=== PATIENT | male | born 1970 | race American Indian/Alaskan Native ===

== ENCOUNTER 2018-04-24 06:01 | Inpatient (IN) | payer SELFPAY ==
[2018-04-24 07:17] LABS: Basophils # (Auto) 0.1 K/mm3 (0.0-0.1); Basophils % (Auto) 1.2 % (0.0-1.8); Eosinophils # (Auto) 0.1 K/mm3 (0.0-0.4); Eosinophils % (Auto) 1.1 % (0.0-4.3); Hematocrit 48.6 % (35.5-45.6); Hemoglobin 15.2 gm/dl (11.8-15.2); Lymphocytes # (Auto) 1.1 K/mm3 (1.2-5.4); Lymphocytes % (Auto) 14.2 % (13.4-35.0); Mean Corpuscular HGB Conc 31 % (32-34); Mean Corpuscular Hemoglobin 27 pg (28-32); Mean Corpuscular Volume 87 fl (84-94); Monocytes # (Auto) 0.6 K/mm3 (0.0-0.8); Monocytes % (Auto) 8.2 % (0.0-7.3); Platelet Count 380 K/mm3 (140-440); Red Cell Distribution Width 18.5 % (13.2-15.2)
--- NOTE | 2018-04-24 07:34 | XRay Report ---
FINAL REPORT EXAM: XR CHEST ROUTINE 2V HISTORY: Shortness of breath TECHNIQUE: PA and lateral chest radiographs PRIORS: None. FINDINGS: No mediastinal shift. Cardiomegaly. Mild blunting right costophrenic angle. Ill-defined right basilar opacity. No pneumothorax, effusion, or focal pulmonary opacity. No acute skeletal finding. IMPRESSION: Ill-defined right basilar opacity with small right pleural effusion may be sequela of infection or heart failure.
[2018-04-24 07:40] LABS: Calcium 9.3 mg/dL (8.4-10.2)
[2018-04-24] MEDS ORDERED: LASIX IV ONE (07:58)
[2018-04-24] MEDS ORDERED: NITROSTAT SL ONE (07:58)
--- NOTE | 2018-04-24 07:58 | Emergency Department Report ---
ED Shortness of Breath HPI - General Chief Complaint: Dyspnea/Respdistress Stated Complaint: SOB AND HIGH B/P Time Seen by Provider: 04/24/18 07:52 Source: patient Mode of arrival: Ambulatory Limitations: No Limitations - History of Present Illness Initial Comments: Patient is a 47-year-old male with history of congestive heart failure and hypertension. Patient presented to the ER complaining of shortness of breath and generalized body swelling mainly abdomen and lower extremity. Patient stated that he is out of his medication for a week so far. She denied any chest pain, fever or cough. MD Complaint: shortness of breath - Related Data Allergies Allergy/AdvReac Type Severity Reaction Status Date / Time No Known Allergies Allergy Unverified 04/24/18 06:54 ED Review of Systems ROS: Stated complaint: SOB AND HIGH B/P Other details as noted in HPI Comment: All other systems reviewed and negative Constitutional: denies: chills, fever Respiratory: orthopnea, shortness of breath, SOB with exertion, SOB at rest. denies: cough, wheezing Gastrointestinal: denies: abdominal pain, nausea, vomiting, hematochezia Genitourinary: denies: urgency, dysuria Musculoskeletal: denies: back pain Skin: denies: rash, lesions Neurological: denies: headache, weakness, numbness, paresthesias, confusion ED Past Medical Hx - Past Medical History Previous Medical History?: Yes Hx Congestive Heart Failure: Yes - Surgical History Past Surgical History?: Yes - Social History Smoking Status: Never Smoker Substance Use Type: None ED Physical Exam - General Limitations: No Limitations General appearance: alert, in no apparent distress - Head Head exam: Present: atraumatic, normocephalic, normal inspection - Eye Eye exam: Present: normal appearance, PERRL - ENT ENT exam: Present: normal exam, normal orophraynx, mucous membranes moist - Neck Neck exam: Present: normal inspection, full ROM. Absent: tenderness, meningismus, lymphadenopathy, thyromegaly - Respiratory Respiratory exam: Present: rales, decreased breath sounds. Absent: respiratory distress, wheezes, rhonchi, accessory muscle use, prolonged expiratory - Cardiovascular Cardiovascular Exam: Present: tachycardia - GI/Abdominal GI/Abdominal exam: Present: soft, normal bowel sounds. Absent: distended, tenderness, guarding, rebound, rigid, organomegaly, mass, bruit, pulsatile mass , hernia - Extremities Exam Extremities exam: Present: pedal edema. Absent: tenderness, calf tenderness - Back Exam Back exam: Present: normal inspection, full ROM. Absent: tenderness, CVA tenderness (R), CVA tenderness (L), muscle spasm, paraspinal tenderness, vertebral tenderness - Neurological Exam Neurological exam: Present: alert, oriented X3, CN II-XII intact, normal gait, reflexes normal - Skin Skin exam: Present: warm, intact, normal color ED Course Vital Signs 04/24/18 04/24/18 06:37 07:36 Temperature 97.7 F Pulse Rate 105 H Respiratory 18 18 Rate Blood Pressure 192/151 O2 Sat by Pulse 96 99 Oximetry ED Medical Decision Making - Lab Data Result diagrams: 04/24/18 07:01 04/24/18 07:01 - EKG Data -: EKG Interpreted by Mn - Radiology Data Radiology results: report reviewed Referring Physician: SANTO KIRBY Patient Name: BAYRON GROVER Date of : 1970 Sex: Male Report Date: 2018-04-24 Report Status: Finalized Findings [facility] [address] [place] [address] XRay Report Signed Patient: BAYRON GROVER MR#: [id number] : 1970 Acct:[id number] Age/Sex: 47 / M ADM Date: 04/24/18 Loc: ED Attending Dr: Ordering Physician: SANTO KIRBY MD Date of Service: 04/24/18 Procedure(s): XR chest routine 2V Accession Number(s): [id number] cc: SANTO KIRBY MD Fluoro Time In Minutes: FINAL REPORT EXAM: XR CHEST ROUTINE 2V HISTORY: Shortness of breath TECHNIQUE: PA and lateral chest radiographs PRIORS: None. FINDINGS: No mediastinal shift. Cardiomegaly. Mild blunting right costophrenic angle. Ill-defined right basilar opacity. No pneumothorax, effusion, or focal pulmonary opacity. No acute skeletal finding. IMPRESSION: Ill-defined right basilar opacity with small right pleural effusion may be sequela of infection or heart failure. Transcribed By: MB Dictated By: EZEKIEL THOMPSON MD Electronically Authenticated By: EZEKIEL THOMPSON MD Signed Date/Time: 04/24/18733 DD/ 3 TD/TT: 04/24/18733 - Medical Decision Making I discussed the patient is Dr. Mclaughlin, he agreed to admit the patient to medical service. He advised to do bridge order to admit the patient. Critical Care Time: Yes Critical care time in (mins) excluding proc time.: 30 Critical care attestation.: If time is entered above; I have spent that time in minutes in the direct care of this critically ill patient, excluding procedure time. ED Disposition Clinical Impression: CHF exacerbation, Hypertensive emergency, Acute renal failure Disposition: OP ADMIT IP TO THIS HOSP Is pt being admited?: Yes Condition: Stable Instructions: Hypertension (ED) Referrals: PRIMARY CARE, [Primary Care Provider] - 3-5 Days
[2018-04-24] MEDS ORDERED: SODIUM CHLORIDE FLUSH SYRINGE 10 ML IV PRN (09:31)
[2018-04-24] MEDS ORDERED: TYLENOL PO PRN (09:31)
[2018-04-24] MEDS ORDERED: MORPHINE IV PRN (09:31)
[2018-04-24] MEDS ORDERED: AMBIEN PO PRN (09:31)
[2018-04-24] MEDS ORDERED: ZOFRAN IV PRN (09:31)
[2018-04-24 09:38] LABS: Chol/HDL Ratio 4.79 %
[2018-04-24] MEDS ORDERED: PEPCID PO SCH (10:00)
[2018-04-24] MEDS: APRESOLINE PO SCH ×2 (11:03→21:53)
[2018-04-24] MEDS: COZAAR PO SCH (11:03)
[2018-04-24] MEDS: K-DUR PO SCH ×2 (11:04→21:54)
[2018-04-24] MEDS: PEPCID PO SCH (11:04)
[2018-04-24] MEDS: SODIUM CHLORIDE FLUSH SYRINGE 10 ML IV SCH ×2 (11:05→21:55)
[2018-04-24] MEDS: COREG PO SCH ×2 (11:10→21:53)
[2018-04-24] MEDS: LASIX IV SCH (18:24)
[2018-04-25] MEDS: LASIX IV SCH ×2 (05:14→18:13)
[2018-04-25] MEDS: APRESOLINE PO SCH ×3 (05:14→21:23)
[2018-04-25] MEDS ORDERED: CATAPRES PO ONE (05:57)
[2018-04-25 06:22] LABS: Basophils # (Auto) 0.1 K/mm3 (0.0-0.1); Basophils % (Auto) 1.2 % (0.0-1.8); Eosinophils # (Auto) 0.2 K/mm3 (0.0-0.4); Eosinophils % (Auto) 3.4 % (0.0-4.3); Hemoglobin 13.8 gm/dl (11.8-15.2); Lymphocytes % (Auto) 15.8 % (13.4-35.0); Mean Corpuscular HGB Conc 32 % (32-34); Mean Corpuscular Hemoglobin 27 pg (28-32); Mean Corpuscular Volume 85 fl (84-94); Monocytes # (Auto) 0.6 K/mm3 (0.0-0.8); Monocytes % (Auto) 9.9 % (0.0-7.3); Platelet Count 302 K/mm3 (140-440); Red Blood Count 5.04 M/mm3 (3.65-5.03); Red Cell Distribution Width 18.2 % (13.2-15.2)
[2018-04-25 06:58] LABS: Albumin 2.4 g/dL (3.9-5); Calcium 8.5 mg/dL (8.4-10.2)
--- NOTE | 2018-04-25 07:38 | Consultation ---
History of Present Illness - Reason for Consult Consult date: 04/25/18 acute renal failure - History of Present Illness Mr. Kramer is a 47yo with hx of CHF and HTN who presents to the ED with SOB and swelling. He was diagnosed w/ CHF and HTN in 2016 while hospitalized at [facility]. Prior to that time, he had not been seen by a healthcare provider He states that he has not taken any medications for appx 2 months. Mr. Kramer reports onset of SOB and leg swelling began appx 1 month ago and has progressively worsened. He denies a prior hx of CKD. He denies epistaxis, hemoptysis, hematuria, family hx of kidney disease. He reports occasional NSAID use. Past History Past Medical History: heart failure, hypertension Past Surgical History: No surgical history Social history: denies: smoking, alcohol abuse, IV drug use Family history: other (no family hx of kidney disease) Medications and Allergies Allergies Allergy/AdvReac Type Severity Reaction Status Date / Time No Known Allergies Allergy Unverified 04/24/18 06:54 Active Meds: Active Medications Acetaminophen (Tylenol) 650 mg PO Q4H PRN PRN Reason: Pain MILD(1-3)/Fever >100.5/[place] Carvedilol (Coreg) 12.5 mg PO BID [facility] Last Admin: 04/24/18 21:53 Dose: 12.5 mg Famotidine (Pepcid) 20 mg PO QDAY [facility] Last Admin: 04/24/18 11:04 Dose: 20 mg Furosemide (Lasix) 40 mg IV 0600,1800 [facility] Last Admin: 04/25/18 05:14 Dose: 40 mg Hydralazine HCl (Apresoline) 50 mg PO Q8HR [facility] Last Admin: 04/25/18 05:14 Dose: 50 mg Losartan Potassium (Cozaar) 100 mg PO QDAY [facility] Last Admin: 04/24/18 11:03 Dose: 100 mg Morphine Sulfate (Morphine) 2 mg IV Q4H PRN PRN Reason: Pain, Moderate (4-6) Ondansetron HCl (Zofran) 4 mg IV Q8H PRN PRN Reason: Nausea And Vomiting Oxycodone/Acetaminophen (Percocet 5/325) 1 tab PO Q6H PRN PRN Reason: Pain, Moderate (4-6) Potassium Chloride (K-Dur) 20 meq PO Q12HR [facility] Last Admin: 04/24/18 21:54 Dose: 20 meq Sodium Chloride (Sodium Chloride Flush Syringe 10 Ml) 10 ml IV BID [facility] Last Admin: 04/24/18 21:55 Dose: 10 ml Sodium Chloride (Sodium Chloride Flush Syringe 10 Ml) 10 ml IV PRN PRN PRN Reason: LINE FLUSH Zolpidem Tartrate (Ambien) 5 mg PO QHS PRN PRN Reason: Insomnia Review of Systems Constitutional: no fever, no chills, no poor appetite Cardiovascular: edema, shortness of breath, no chest pain, no orthopnea Respiratory: shortness of breath, dyspnea on exertion Exam - Vital Signs Vital signs: Vital Signs Temp Pulse Resp BP Pulse Ox 97.7 F 101 H 12 192/151 92 04/24/18 06:06 04/24/18 06:06 04/24/18 06:06 04/24/18 06:06 04/24/18 06:06 - General Appearance General appearance: well-developed, well-nourished Heart: regular, S1S2 Gastrointestinal: Present: normal. Absent: tenderness, distended Integumentary: no rash, warm and dry Neurologic: alert and oriented x3 Psychiatric: cooperative Results - Lab Results 04/25/18 05:17 04/25/18 05:17 Most recent lab results Calcium 8.5 mg/dL (8.4-10.2) 04/25/18 05:17 Assessment and Plan Impression: * Acute kidney injury vs chronic kidney disease secondary to cardiorenal syndrome * Acute on chronic systolic heart failure - EF 15-20% * Anasarca * Hypertension Plan: * Baseline renal function is unknown. However, patient likely has underlying chronic kidney disease. There is no indication for renal replacement at this time * Continue IV diuresis * Optimization of cardiac function; may require inotrope support to aid in diuresis if SCr increases w/ diruesis * Strict I/O w/ 1500ml/fluid restriction ordered * Check renal ultrasound * Obtain serologic work up * Obtain 24h urine CrCl and protein * Avoid nephrotoxins - patient instructed to avoid NSAID use in future * Dose medications for renal function
--- NOTE | 2018-04-25 08:47 | History and Physical Report ---
History of Present Illness Date of examination: 04/24/18 Date of admission: 04/24/18 08:25 Chief complaint: CC Complaints of SOB asnd swelling of legs 1 week History of present illness: History of Present Illness Patient is a 47-year-old male with history of congestive heart failure and hypertension presented to the ER complaining of shortness of breath and generalized body swelling mainly abdomen and lower extremity. Patient stated that he is out of his medication for 2 months so far. Denied any chest pain, fever or cough.No recent travel. Past Medical History Previous Medical History?: Yes Hx Congestive Heart Failure: Yes Surgical History Past Surgical History?: Yes Family History Htn Social History Smoking Status: Never Smoker Substance Use Type: None Review of Systems ROS: Stated complaint: SOB AND HIGH B/P Other details as noted in HPI Comment: All other systems reviewed and negative Constitutional: denies: chills, fever Respiratory: orthopnea, shortness of breath, SOB with exertion, SOB at rest. denies: cough, wheezing Gastrointestinal: denies: abdominal pain, nausea, vomiting, hematochezia Genitourinary: denies: urgency, dysuria Musculoskeletal: denies: back pain Skin: denies: rash, lesions Neurological: denies: headache, weakness, numbness, paresthesias, confusion Medications and Allergies Allergies Allergy/AdvReac Type Severity Reaction Status Date / Time No Known Allergies Allergy Unverified 04/24/18 06:54 Active Meds: Active Medications Acetaminophen (Tylenol) 650 mg PO Q4H PRN PRN Reason: Pain MILD(1-3)/Fever >100.5/[place] Carvedilol (Coreg) 12.5 mg PO BID [facility] Last Admin: 04/24/18 21:53 Dose: 12.5 mg Famotidine (Pepcid) 20 mg PO QDAY [facility] Last Admin: 04/24/18 11:04 Dose: 20 mg Furosemide (Lasix) 40 mg IV 0600,1800 [facility] Last Admin: 04/25/18 05:14 Dose: 40 mg Hydralazine HCl (Apresoline) 50 mg PO Q8HR [facility] Last Admin: 04/25/18 05:14 Dose: 50 mg Losartan Potassium (Cozaar) 100 mg PO QDAY [facility] Last Admin: 04/24/18 11:03 Dose: 100 mg Morphine Sulfate (Morphine) 2 mg IV Q4H PRN PRN Reason: Pain, Moderate (4-6) Ondansetron HCl (Zofran) 4 mg IV Q8H PRN PRN Reason: Nausea And Vomiting Oxycodone/Acetaminophen (Percocet 5/325) 1 tab PO Q6H PRN PRN Reason: Pain, Moderate (4-6) Potassium Chloride (K-Dur) 20 meq PO Q12HR [facility] Last Admin: 04/24/18 21:54 Dose: 20 meq Sodium Chloride (Sodium Chloride Flush Syringe 10 Ml) 10 ml IV BID [facility] Last Admin: 04/24/18 21:55 Dose: 10 ml Sodium Chloride (Sodium Chloride Flush Syringe 10 Ml) 10 ml IV PRN PRN PRN Reason: LINE FLUSH Zolpidem Tartrate (Ambien) 5 mg PO QHS PRN PRN Reason: Insomnia Exam - Constitutional Vitals: Temp Pulse Resp BP Pulse Ox 97.9 F 57 L 20 136/95 95 04/25/18 07:48 04/25/18 07:48 04/25/18 07:48 04/25/18 07:48 04/25/18 07:48 General appearance: Present: mild distress, well-nourished - EENT Eyes: Present: PERRL ENT: hearing intact, clear oral mucosa - Neck Neck: Present: supple, normal ROM - Respiratory Respiratory effort: normal Respiratory: bilateral: CTA - Cardiovascular Heart rate: 78 Rhythm: regular Heart Sounds: Present: S1 & S2. Absent: rub, click - Extremities Extremities: no ischemia, pulses symmetrical, No edema Extremity abnormal: edema (4 plus) Peripheral Pulses: within normal limits - Abdominal General gastrointestinal: Present: soft, non-tender, non-distended, normal bowel sounds Male genitourinary: Present: normal - Rectal Rectal Exam: deferred - Integumentary Integumentary: Present: clear, warm, dry - Musculoskeletal Musculoskeletal: gait normal, strength equal bilaterally - Psychiatric Psychiatric: appropriate mood/affect, intact judgment & insight - Neurologic Neurologic: CNII-XII intact, moves all extremities - Allied Health Allied health notes reviewed: nursing, case management Results - Labs CBC & Chem 7: 04/25/18 05:17 04/25/18 05:17 Labs: Laboratory Last Values WBC 6.4 K/mm3 (4.5-11.0) 04/25/18 05:17 RBC 5.04 M/mm3 (3.65-5.03) H 04/25/18 05:17 Hgb 13.8 gm/dl (11.8-15.2) 04/25/18 05:17 Hct 43.0 % (35.5-45.6) 04/25/18 05:17 MCV 85 fl (84-94) 04/25/18 05:17 MCH 27 pg (28-32) L 04/25/18 05:17 MCHC 32 % (32-34) 04/25/18 05:17 RDW 18.2 % (13.2-15.2) H 04/25/18 05:17 Plt Count 302 K/mm3 (140-440) 04/25/18 05:17 Lymph % (Auto) 15.8 % (13.4-35.0) 04/25/18 05:17 [place] % (Auto) 9.9 % (0.0-7.3) H 04/25/18 05:17 Eos % (Auto) 3.4 % (0.0-4.3) 04/25/18 05:17 Baso % (Auto) 1.2 % (0.0-1.8) 04/25/18 05:17 Lymph # 1.0 K/mm3 (1.2-5.4) L 04/25/18 05:17 [place] # 0.6 K/mm3 (0.0-0.8) 04/25/18 05:17 Eos # 0.2 K/mm3 (0.0-0.4) 04/25/18 05:17 Baso # 0.1 K/mm3 (0.0-0.1) 04/25/18 05:17 Seg Neutrophils % 69.7 % (40.0-70.0) 04/25/18 05:17 Seg Neutrophils # 4.5 K/mm3 (1.8-7.7) 04/25/18 05:17 Sodium 140 mmol/L (137-145) 04/25/18 05:17 Potassium 4.6 mmol/L (3.6-5.0) 04/25/18 05:17 Chloride 101.6 mmol/L (98-107) 04/25/18 05:17 Carbon Dioxide 24 mmol/L (22-30) 04/25/18 05:17 Anion Gap 19 mmol/L 04/25/18 05:17 BUN 65 mg/dL (9-20) H 04/25/18 05:17 Creatinine 3.4 mg/dL (0.8-1.5) H 04/25/18 05:17 Estimated GFR 24 ml/min 04/25/18 05:17 BUN/Creatinine Ratio 19 % 04/25/18 05:17 Glucose 78 mg/dL (75-100) 04/25/18 05:17 Hemoglobin A1c 6.3 % (4-6) H 04/24/18 09:49 Calcium 8.5 mg/dL (8.4-10.2) 04/25/18 05:17 Total Bilirubin 1.20 mg/dL (0.1-1.2) 04/25/18 05:17 AST 18 units/L (5-40) 04/25/18 05:17 ALT 15 units/L (7-56) 04/25/18 05:17 Alkaline Phosphatase 63 units/L (35-129) 04/25/18 05:17 Troponin T 0.070 ng/mL (0.00-0.029) H 04/24/18 07:01 NT-Pro-B Natriuret Pep 94183 pg/mL (0-450) H 04/24/18 07:01 Total Protein 5.8 g/dL (6.3-8.2) L 04/25/18 05:17 Albumin 2.4 g/dL (3.9-5) L 04/25/18 05:17 Albumin/Globulin Ratio 0.7 % 04/25/18 05:17 Triglycerides 110 mg/dL (2-149) 04/24/18 07:01 Cholesterol 115 mg/dL (50-199) 04/24/18 07:01 LDL Cholesterol Direct 78 mg/dL (50-130) 04/24/18 07:01 HDL Cholesterol 24 mg/dL (40-59) L 04/24/18 07:01 Cholesterol/HDL Ratio 4.79 % 04/24/18 07:01 Short CBC 04/25/18 Range/Units 05:17 WBC 6.4 (4.5-11.0) K/mm3 Hgb 13.8 (11.8-15.2) gm/dl Hct 43.0 (35.5-45.6) % Plt Count 302 (140-440) K/mm3 BMP 04/25/18 05:17 Sodium 140 Potassium 4.6 Chloride 101.6 Carbon Dioxide 24 BUN 65 H Creatinine 3.4 H Glucose 78 Calcium 8.5 Liver Function 04/25/18 Range/Units 05:17 Total Bilirubin 1.20 (0.1-1.2) mg/dL AST 18 (5-40) units/L ALT 15 (7-56) units/L Alkaline Phosphatase 63 (35-129) units/L Albumin 2.4 L (3.9-5) g/dL - Imaging and Cardiology EKG: report reviewed ( [facility]) Chest x-ray: report reviewed Imaging and Cardiology: CXR FINDINGS: No mediastinal shift. Cardiomegaly. Mild blunting right costophrenic angle. Ill-defined right basilar opacity. No pneumothorax, effusion, or focal pulmonary opacity. No acute skeletal finding. IMPRESSION: Ill-defined right basilar opacity with small right pleural effusion may be sequela of infection or heart failure. Assessment and Plan Advance Directives: Yes (Full code) VTE prophylaxis?: Chemical Plan of care discussed with patient/family: Yes - Patient Problems (1) Hypertensive emergency Current Visit: Yes Status: Acute Plan to address problem: Patient counselled Added Losartan Hydralazine and Coreg which he will continue after discharge Hydralazine IV Prn q3h (2) CHF exacerbation Current Visit: Yes Status: Acute Qualifiers: Heart failure type: combined systolic and diastolic Qualified Code(s): I50.43 - Acute on chronic combined systolic (congestive) and diastolic ( congestive) heart failure Plan to address problem: Ordered ECHO for EF and IV Lasix q12h (3) Acute renal failure Current Visit: Yes Status: Acute Qualifiers: Acute renal failure type: with acute tubular necrosis Qualified Code(s): N17.0 - Acute kidney failure with tubular necrosis Plan to address problem: Acute on chronic Nephrolgy consulted (4) CKD (chronic kidney disease) stage 4, GFR 15-29 ml/min Current Visit: Yes Status: Chronic Plan to address problem: Workup in progress (5) DVT prophylaxis Current Visit: Yes Status: Acute Plan to address problem: On Heparin Gi prophylaxis initiated
--- NOTE | 2018-04-25 09:21 | Progress Note ---
Assessment and Plan - Patient Problems (1) Hypertensive emergency Current Visit: Yes Status: Acute Plan to address problem: Patient counselled Added Losartan Hydralazine and Coreg which he will continue after discharge Hydralazine IV Prn q3h (2) CHF exacerbation Current Visit: Yes Status: Acute Qualifiers: Heart failure type: combined systolic and diastolic Qualified Code(s): I50.43 - Acute on chronic combined systolic (congestive) and diastolic ( congestive) heart failure Plan to address problem: Ordered ECHO for EF and IV Lasix q12h EF 15 to 20 percent Cardiology consult requested (3) Acute renal failure Current Visit: Yes Status: Acute Qualifiers: Acute renal failure type: with acute tubular necrosis Qualified Code(s): N17.0 - Acute kidney failure with tubular necrosis Plan to address problem: Acute on chronic Nephrolgy consulted (4) CKD (chronic kidney disease) stage 4, GFR 15-29 ml/min Current Visit: Yes Status: Chronic Plan to address problem: Workup in progress (5) DVT prophylaxis Current Visit: Yes Status: Acute Plan to address problem: On Heparin Gi prophylaxis initiated Subjective Date of service: 04/25/18 Principal diagnosis: Hypertensive emergency,CHF exacerbation Interval history: Symptomatically lot better Objective - Constitutional Vitals: Vital Signs - 12hr 04/24/18 04/25/18 04/25/18 22:00 00:17 05:17 Temperature 97.6 F 97.5 F L Pulse Rate 68 73 Respiratory 18 20 18 Rate Blood Pressure 149/110 170/124 O2 Sat by Pulse 96 97 Oximetry 04/25/18 07:48 Temperature 97.9 F Pulse Rate 57 L Respiratory 20 Rate Blood Pressure 136/95 O2 Sat by Pulse 95 Oximetry General appearance: Present: no acute distress, well-nourished - EENT Eyes: PERRL, EOM intact ENT: hearing intact, clear oral mucosa Ears: bilateral: normal - Neck Neck: supple, normal ROM - Respiratory Respiratory effort: normal Respiratory: bilateral: CTA - Breasts Breasts: normal - Cardiovascular Heart rate: 78 Rhythm: regular Heart Sounds: Present: S1 & S2. Absent: gallop, rub Extremities: no ischemia, pulses intact, No edema, normal color, Full ROM Extremity abnormal: edema (2 plus) - Gastrointestinal General gastrointestinal: Present: soft, non-tender, non-distended, normal bowel sounds Rectal Exam: deferred - Genitourinary Male genitourinary: normal - Integumentary Integumentary: clear, warm, dry - Musculoskeletal Musculoskeletal: 1, strength equal bilaterally - Neurologic Neurologic: moves all extremities - Psychiatric Psychiatric: memory intact, appropriate mood/affect, intact judgment & insight - Labs CBC & Chem 7: 04/25/18 05:17 04/25/18 05:17 Labs: Abnormal lab results 04/24/18 04/24/18 04/25/18 Range/Units 07:01 09:49 05:17 RBC 5.04 H (3.65-5.03) M/mm3 MCH 27 L (28-32) pg RDW 18.2 H (13.2-15.2) % [place] % (Auto) 9.9 H (0.0-7.3) % Lymph # 1.0 L (1.2-5.4) K/mm3 BUN (9-20) mg/dL Creatinine (0.8-1.5) mg/dL Hemoglobin A1c 6.3 H (4-6) % NT-Pro-B Natriuret Pep 19747 H (0-450) pg/mL Total Protein (6.3-8.2) g/dL Albumin (3.9-5) g/dL HDL Cholesterol 24 L (40-59) mg/dL 04/25/18 Range/Units 05:17 RBC (3.65-5.03) M/mm3 MCH (28-32) pg RDW (13.2-15.2) % [place] % (Auto) (0.0-7.3) % Lymph # (1.2-5.4) K/mm3 BUN 65 H (9-20) mg/dL Creatinine 3.4 H (0.8-1.5) mg/dL Hemoglobin A1c (4-6) % NT-Pro-B Natriuret Pep (0-450) pg/mL Total Protein 5.8 L (6.3-8.2) g/dL Albumin 2.4 L (3.9-5) g/dL HDL Cholesterol (40-59) mg/dL
[2018-04-25] MEDS: COZAAR PO SCH (09:25)
[2018-04-25] MEDS: COREG PO SCH ×2 (09:25→21:24)
[2018-04-25] MEDS: K-DUR PO SCH ×2 (09:25→21:24)
[2018-04-25] MEDS: PEPCID PO SCH (09:26)
[2018-04-25] MEDS: SODIUM CHLORIDE FLUSH SYRINGE 10 ML IV SCH ×2 (09:26→21:24)
--- NOTE | 2018-04-25 11:41 | Consultation ---
History of Present Illness Consult date: 04/25/18 Requesting physician: JAKE DOBSON Consult reason: congestive heart failure, hypertension History of present illness: The pt is a 47 YO male with a past medical history significant for HTN and HF. He is previously unknown to our practice. He presented with complaints of progressively worsening BLE and abdominal edema for 1 week and SOB for 1 day prior to arrival. He denies any chest pain, palpitations, n/v, diaphoresis, dizziness or syncope. He reports that he was diagnosed with "congestive heart failure" during a hospitalization for heart failure at [facility] in 2014. Following that hospitalization, he followed up with a [facility] production wood craftsman a couple of times and thought he did not need any more cardiology follow up. He does not regularly see a PCP either. He denies any prior ischemic evaluation, including stress test or heart cath. He has intermittently been getting his prescription medications filled through [facility]. Echo done yesterday showed EF 15-20%, mod LVH, LV mildly dilated, RV severely dilated, RV systolic function mildly reduced, pulm HTN with RVSP 60mmHg, severe TR. Past History Past Medical History: heart failure, hypertension Medications and Allergies Allergies Allergy/AdvReac Type Severity Reaction Status Date / Time No Known Allergies Allergy Unverified 04/24/18 06:54 Active Meds: Active Medications Acetaminophen (Tylenol) 650 mg PO Q4H PRN PRN Reason: Pain MILD(1-3)/Fever >100.5/[place] Carvedilol (Coreg) 12.5 mg PO BID [facility] Last Admin: 04/25/18 09:25 Dose: 12.5 mg Famotidine (Pepcid) 20 mg PO QDAY [facility] Last Admin: 04/25/18 09:26 Dose: 20 mg Furosemide (Lasix) 40 mg IV 0600,1800 [facility] Last Admin: 04/25/18 05:14 Dose: 40 mg Hydralazine HCl (Apresoline) 50 mg PO Q8HR [facility] Last Admin: 04/25/18 05:14 Dose: 50 mg Losartan Potassium (Cozaar) 100 mg PO QDAY [facility] Last Admin: 04/25/18 09:25 Dose: 100 mg Morphine Sulfate (Morphine) 2 mg IV Q4H PRN PRN Reason: Pain, Moderate (4-6) Ondansetron HCl (Zofran) 4 mg IV Q8H PRN PRN Reason: Nausea And Vomiting Oxycodone/Acetaminophen (Percocet 5/325) 1 tab PO Q6H PRN PRN Reason: Pain, Moderate (4-6) Potassium Chloride (K-Dur) 20 meq PO Q12HR [facility] Last Admin: 04/25/18 09:25 Dose: 20 meq Sodium Chloride (Sodium Chloride Flush Syringe 10 Ml) 10 ml IV BID [facility] Last Admin: 04/25/18 09:26 Dose: 10 ml Sodium Chloride (Sodium Chloride Flush Syringe 10 Ml) 10 ml IV PRN PRN PRN Reason: LINE FLUSH Zolpidem Tartrate (Ambien) 5 mg PO QHS PRN PRN Reason: Insomnia Review of Systems Constitutional: no fever, no chills, no sweats Ears, nose, mouth and throat: no ear pain, no nose pain, no sinus pressure, no sinus pain Cardiovascular: edema, shortness of breath, dyspnea on exertion, high blood pressure, leg edema, decreased exercise tolerance, no chest pain, no orthopnea, no palpitations, no rapid/irregular heart beat, no syncope, no lightheadedness, no paroxysmal nocturnal dyspnea Respiratory: shortness of breath, dyspnea on exertion, no cough, no congestion, no wheezing, no pain on inspiration Gastrointestinal: other (abdominal swelling), no abdominal pain, no nausea, no vomiting, no diarrhea, no constipation, no change in bowel habits Genitourinary Male: no dysuria, no hematuria, no flank pain, no discharge, no urinary frequency, no urinary hesitancy Musculoskeletal: no neck stiffness, no neck pain Integumentary: no rash, no pruritis, no redness, no sores, no wounds Neurological: no head injury, no paralysis, no weakness, no parathesias, no numbness, no tingling, no seizures, no syncope Psychiatric: no anxiety Endocrine: no cold intolerance, no heat intolerance Hematologic/Lymphatic: no easy bruising, no easy bleeding Allergic/Immunologic: no urticaria, no wheezing Physical Examination Vital Signs Temp Pulse Resp BP Pulse Ox 97.7 F 101 H 12 192/151 92 04/24/18 06:06 04/24/18 06:06 04/24/18 06:06 04/24/18 06:06 04/24/18 06:06 General appearance: no acute distress HEENT: Positive: PERRL, Normocephaly, Mucus Membranes Moist Neck: Positive: neck supple, trachea midline Cardiac: Positive: Reg Rate and Rhythm, S1/S2 Lungs: Positive: Decreased Breath Sounds Neuro: Positive: Grossly Intact Abdomen: Positive: Other (edematous ). Negative: Tender Skin: Positive: Clear. Negative: Rash, Wound Musculoskeletal: No Pain Extremities: Present: +3 Edema (BLE ) Results 04/25/18 05:17 04/25/18 05:17 Cardiac Enzymes 04/25/18 Range/Units 05:17 AST 18 (5-40) units/L CBC 04/25/18 Range/Units 05:17 WBC 6.4 (4.5-11.0) K/mm3 RBC 5.04 H (3.65-5.03) M/mm3 Hgb 13.8 (11.8-15.2) gm/dl Hct 43.0 (35.5-45.6) % Plt Count 302 (140-440) K/mm3 Lymph # 1.0 L (1.2-5.4) K/mm3 [place] # 0.6 (0.0-0.8) K/mm3 Eos # 0.2 (0.0-0.4) K/mm3 Baso # 0.1 (0.0-0.1) K/mm3 Comprehensive Metabolic Panel 04/25/18 Range/Units 05:17 Sodium 140 (137-145) mmol/L Potassium 4.6 (3.6-5.0) mmol/L Chloride 101.6 (98-107) mmol/L Carbon Dioxide 24 (22-30) mmol/L BUN 65 H (9-20) mg/dL Creatinine 3.4 H (0.8-1.5) mg/dL Glucose 78 (75-100) mg/dL Calcium 8.5 (8.4-10.2) mg/dL AST 18 (5-40) units/L ALT 15 (7-56) units/L Alkaline Phosphatase 63 (35-129) units/L Total Protein 5.8 L (6.3-8.2) g/dL Albumin 2.4 L (3.9-5) g/dL - Imaging and Cardiology Echo: report reviewed (04/24/2018: EF 15-20%, mod LVH, LV mildly dilated, RV severely dilated, RV systolic function mildly reduced, pulm HTN with RVSP 60mmHg , severe TR. ) EKG: report reviewed, image reviewed EKG interpretations - Telemetry EKG Rhythm: Sinus Rhythm - EKG Sinus rhythms and dysrhythmias: sinus rhythm Chamber hypertrophy or enlargement: left ventricular hypertro Repolarization changes or abnormalities: repolarization abn secondary to ventricular hypertrophy Assessment and Plan Assessment: Acute systolic heart failure Dilated CMP - EF 15-20% RV systolic dysfunction Uncontrolled HTN Acute renal failure Pulmonary HTN with RVSP 60mmHg Severe TR Obesity Medical noncompliance Plan: Cont coreg and IV lasix BID. Monitor renal indices and await nephrology consultation. D/c losartan in setting of acute renal failure. Ischemic evaluation (likely coronary angiography) recommended for further eval of CMP and valvular disease. Can consider LHC and/or RHC once renal function is optimized and pt is medically stabilized - likely next week. Consider LifeVest placement prior to hospital discharge. Attempt to obtain [facility] records. Assessment and plan reviewed with pt at bedside. The patient has been seen in conjunction with Dr. Benitez who agrees with the assessment and plan of care.
--- NOTE | 2018-04-25 15:34 | Ultrasound Report ---
FINAL REPORT EXAM: US RENAL BILAT HISTORY: VICKI TECHNIQUE: Ultrasound examination of the kidneys PRIORS: None. FINDINGS: Visualized right kidney: 11.4 x 4.3 x 5.2 cm. Visualized left kidney: 10.7 x 4.3 x 4.0 cm. Renal cortical thickness is 13 mm on the right and 12 mm on the left. Focal lesion: None visible Calculus: None visible Hydronephrosis: None Perinephric fluid: None Urinary bladder: No evidence of focal abnormality in visible portion. Trace free fluid noted adjacent to the inferior liver margin. IMPRESSION: No sonographic evidence of renal pathology Trace free fluid/ascites noted adjacent to the inferior liver margin
[2018-04-26] MEDS: LASIX IV SCH ×2 (06:12→17:50)
[2018-04-26] MEDS: APRESOLINE PO SCH (06:12)
[2018-04-26 07:09] LABS: Calcium 8.5 mg/dL (8.4-10.2)
[2018-04-26] MEDS ORDERED: APRESOLINE PO SCH (09:41)
--- NOTE | 2018-04-26 09:47 | Progress Note ---
Assessment and Plan Assessment and plan: Patient is a 47-year-old male with history of congestive heart failure and hypertension presented to the ER complaining of shortness of breath and generalized body swelling mainly abdomen and lower extremity. Patient stated that he is out of his medication for 2 months so far. Denied any chest pain, fever or cough.No recent travel. Acute on chronic systolic CHF -Ejection fraction 20% -Patient is on IV Lasix -Cardiology consulted and will get records from [place] Uncontrolled hypertension - Patient is on hydralazine increased from 50-100 - On carvedilol - We've discontinued losartan because of renal failure Acute on chronic renal failure - Nephrology consult appreciated Medication noncompliance - Patient counseled about adherence DVT prophylaxis - On heparin Disposition - Continue inpatient care History Interval history: Patient was seen and evaluated this morning, SOB id getting better. Mild bilateral leg swelling. Hospitalist Physical - Physical exam Narrative exam: Not in cardiopulmonary distress. The patient is morbidly obese. Vital signs as documented. Head exam is unremarkable. No scleral icterus . Neck is without jugular venous distension, thyromegaly, or carotid bruits. Lungs are clear to auscultation. Cardiac exam reveals regular rate and Rhythm. First and second heart sounds normal. No murmurs, rubs or gallops. Abdominal exam reveals normal bowel sounds, no masses, no organomegaly and no aortic enlargement. Extremities bilateral lower extremity edema. MANAGER BILLING: Alert and oriented 3. No focal weakness. - Constitutional Vitals: Temp Pulse Resp BP Pulse Ox 97.9 F 65 20 164/113 94 04/26/18 06:48 04/26/18 06:48 04/26/18 01:03 04/26/18 06:48 04/26/18 06:48 General appearance: Present: no acute distress Results - Labs CBC & Chem 7: 04/25/18 05:17 04/26/18 06:15 Labs: Laboratory Last Values WBC 6.4 K/mm3 (4.5-11.0) 04/25/18 05:17 RBC 5.04 M/mm3 (3.65-5.03) H 04/25/18 05:17 Hgb 13.8 gm/dl (11.8-15.2) 04/25/18 05:17 Hct 43.0 % (35.5-45.6) 04/25/18 05:17 MCV 85 fl (84-94) 04/25/18 05:17 MCH 27 pg (28-32) L 04/25/18 05:17 MCHC 32 % (32-34) 04/25/18 05:17 RDW 18.2 % (13.2-15.2) H 04/25/18 05:17 Plt Count 302 K/mm3 (140-440) 04/25/18 05:17 Lymph % (Auto) 15.8 % (13.4-35.0) 04/25/18 05:17 [place] % (Auto) 9.9 % (0.0-7.3) H 04/25/18 05:17 Eos % (Auto) 3.4 % (0.0-4.3) 04/25/18 05:17 Baso % (Auto) 1.2 % (0.0-1.8) 04/25/18 05:17 Lymph # 1.0 K/mm3 (1.2-5.4) L 04/25/18 05:17 [place] # 0.6 K/mm3 (0.0-0.8) 04/25/18 05:17 Eos # 0.2 K/mm3 (0.0-0.4) 04/25/18 05:17 Baso # 0.1 K/mm3 (0.0-0.1) 04/25/18 05:17 Seg Neutrophils % 69.7 % (40.0-70.0) 04/25/18 05:17 Seg Neutrophils # 4.5 K/mm3 (1.8-7.7) 04/25/18 05:17 Sodium 142 mmol/L (137-145) 04/26/18 06:15 Potassium 4.8 mmol/L (3.6-5.0) 04/26/18 06:15 Chloride 101.0 mmol/L (98-107) 04/26/18 06:15 Carbon Dioxide 28 mmol/L (22-30) 04/26/18 06:15 Anion Gap 18 mmol/L 04/26/18 06:15 BUN 59 mg/dL (9-20) H 04/26/18 06:15 Creatinine 3.3 mg/dL (0.8-1.5) H 04/26/18 06:15 Estimated GFR 25 ml/min 04/26/18 06:15 BUN/Creatinine Ratio 18 % 04/26/18 06:15 Glucose 99 mg/dL (75-100) 04/26/18 06:15 Hemoglobin A1c 6.3 % (4-6) H 04/24/18 09:49 Calcium 8.5 mg/dL (8.4-10.2) 04/26/18 06:15 Total Bilirubin 1.20 mg/dL (0.1-1.2) 04/25/18 05:17 AST 18 units/L (5-40) 04/25/18 05:17 ALT 15 units/L (7-56) 04/25/18 05:17 Alkaline Phosphatase 63 units/L (35-129) 04/25/18 05:17 Troponin T 0.070 ng/mL (0.00-0.029) H 04/24/18 07:01 NT-Pro-B Natriuret Pep 22762 pg/mL (0-450) H 04/24/18 07:01 Total Protein 5.8 g/dL (6.3-8.2) L 04/25/18 05:17 Albumin 2.4 g/dL (3.9-5) L 04/25/18 05:17 Albumin/Globulin Ratio 0.7 % 04/25/18 05:17 Triglycerides 110 mg/dL (2-149) 04/24/18 07:01 Cholesterol 115 mg/dL (50-199) 04/24/18 07:01 LDL Cholesterol Direct 78 mg/dL (50-130) 04/24/18 07:01 HDL Cholesterol 24 mg/dL (40-59) L 04/24/18 07:01 Cholesterol/HDL Ratio 4.79 % 04/24/18 07:01
[2018-04-26] MEDS ORDERED: K-DUR PO SCH (10:00)
[2018-04-26] MEDS: PEPCID PO SCH (10:37)
[2018-04-26] MEDS: COREG PO SCH ×2 (10:37→22:08)
--- NOTE | 2018-04-26 10:54 | Progress Note ---
Assessment and Plan Impression: * Acute kidney injury vs chronic kidney disease 3/4 secondary to cardiorenal syndrome * Acute on chronic systolic heart failure - EF 15-20% * Anasarca * Hypertension Plan: * Baseline renal function is unknown. However, patient likely has underlying chronic kidney disease. There is no indication for renal replacement at this time * Continue IV diuresis * cr is stable today * Optimization of cardiac function; may require inotrope support to aid in diuresis if SCr increases w/ diruesis * Strict I/O w/ 1500ml/fluid restriction ordered * noted renal ultrasound * Obtain serologic work up * 24h urine CrCl and protein pending * Avoid nephrotoxins - patient instructed to avoid NSAID use in future * Dose medications for renal function Subjective Date of service: 04/26/18 Principal diagnosis: Hypertensive emergency,CHF exacerbation Interval history: resting in bed today Objective - Exam Narrative Exam: General appearance: well-developed, well-nourished Heart: regular, S1S2 Gastrointestinal: Present: normal. Absent: tenderness, distended Integumentary: no rash, warm and dry Neurologic: alert and oriented x3 Psychiatric: cooperative - Vital Signs Vital signs: Vital Signs - 12hr 04/26/18 04/26/18 04/26/18 01:03 02:16 06:48 Temperature 98.3 F 97.9 F Pulse Rate 60 60 65 Respiratory 20 Rate Blood Pressure 164/113 Blood Pressure 144/103 [Left] O2 Sat by Pulse 94 94 Oximetry - Lab 04/25/18 05:17 04/26/18 06:15 Most recent lab results Calcium 8.5 mg/dL (8.4-10.2) 04/26/18 06:15
[2018-04-26] MEDS ORDERED: BIDIL 20/37.5MG PO NR (11:53)
--- NOTE | 2018-04-26 12:05 | Progress Note ---
Assessment and Plan Acute systolic heart failure Dilated CMP - EF 15-20% RV systolic dysfunction Uncontrolled HTN Acute renal failure Pulmonary HTN with RVSP 60mmHg Severe TR Obesity Medical noncompliance Plan: Change hydralazine to Bidil which is good for CHF in AA. Spoke with Pharmacist. Computer prompting as duplicate order in spite of DC hydralazine. . Subjective Date of service: 04/26/18 Principal diagnosis: Hypertensive emergency,CHF exacerbation Interval history: Shortness of breath is better.Continues to have edema.No chest pain. Objective Vital Signs Temp Pulse Resp BP BP Pulse Ox 04/26/18 06:48 97.9 F 65 164/113 94 04/26/18 02:16 60 04/26/18 01:03 98.3 F 60 20 144/103 94 04/25/18 22:00 22 04/25/18 21:12 98.1 F 60 149/109 99 04/25/18 16:23 97.9 F 62 18 144/101 97 04/25/18 14:54 57 L 136/95 - Physical Examination General: No Apparent Distress HEENT: Positive: PERRL, Normocephaly, Mucus Membranes Moist Neck: Positive: neck supple, trachea midline. Negative: JVD/HJR Cardiac: Positive: Reg Rate and Rhythm, S3 Lungs: Positive: clear to auscultation Neuro: Positive: Grossly Intact Abdomen: Positive: Tender, Other (edematous ) Skin: Positive: Clear. Negative: Rash, Wound Musculoskeletal: No Pain Extremities: Present: +3 Edema (BLE ) - Labs and Meds Comprehensive Metabolic Panel 04/26/18 Range/Units 06:15 Sodium 142 (137-145) mmol/L Potassium 4.8 (3.6-5.0) mmol/L Chloride 101.0 (98-107) mmol/L Carbon Dioxide 28 (22-30) mmol/L BUN 59 H (9-20) mg/dL Creatinine 3.3 H (0.8-1.5) mg/dL Glucose 99 (75-100) mg/dL Calcium 8.5 (8.4-10.2) mg/dL - Imaging and Cardiology EKG: report reviewed, image reviewed Echo: report reviewed (04/24/2018: EF 15-20%, mod LVH, LV mildly dilated, RV severely dilated, RV systolic function mildly reduced, pulm HTN with RVSP 60mmHg , severe TR. ) - EKG Sinus rhythms and dysrhythmias: sinus rhythm Chamber hypertrophy or enlargement: left ventricular hypertro Repolarization changes or abnormalities: repolarization abn secondary to ventricular hypertrophy
[2018-04-26] MEDS: BIDIL 20/37.5MG PO SCH ×2 (16:36→22:08)
[2018-04-26] MEDS: SODIUM CHLORIDE FLUSH SYRINGE 10 ML IV SCH ×2 (17:50→22:09)
[2018-04-26] MEDS: HEPARIN SUB-Q SCH ×2 (17:50→22:08)
[2018-04-26 19:55] LABS: Creatinine,Urine 35.6 mg/dL (0.1-20.0)
[2018-04-26 20:19] LABS: Creatinine 24 Hour,Urine 1.6 (0.8-2.8); Creatinine,Urine 35.6 mg/dL (0.1-20.0)
[2018-04-26 20:20] LABS: Protein/Creatinine Ratio,Urine 0.67
[2018-04-27] MEDS: LASIX IV SCH ×2 (05:27→18:47)
[2018-04-27] MEDS: BIDIL 20/37.5MG PO SCH ×3 (05:27→21:25)
[2018-04-27 09:03] LABS: Calcium 8.5 mg/dL (8.4-10.2)
--- NOTE | 2018-04-27 09:13 | Progress Note ---
Assessment and Plan Assessment and plan: Patient is a 47-year-old male with history of congestive heart failure and hypertension presented to the ER complaining of shortness of breath and generalized body swelling mainly abdomen and lower extremity. Patient stated that he is out of his medication for 2 months so far. Denied any chest pain, fever or cough.No recent travel. Acute on chronic systolic CHF -Ejection fraction 15-20% -Patient is on IV Lasix, net out put of 2.1 L -Patient is on carvedilol and BiDil -Cardiology consulted and will get records from [place] Uncontrolled hypertension - Continue carvedilol and BiDil, controlled - We've discontinued losartan because of renal failure Acute on chronic renal failure - Nephrology consult appreciated - Slight improvement in creatinine Medication noncompliance - Patient counseled about adherence DVT prophylaxis - On heparin Disposition - Continue inpatient care History Interval history: Patient was seen and evaluated this morning, SOB id getting better. Mild bilateral leg swelling. Hospitalist Physical - Physical exam Narrative exam: Not in cardiopulmonary distress. The patient is morbidly obese. Vital signs as documented. Head exam is unremarkable. No scleral icterus . Neck is without jugular venous distension, thyromegaly, or carotid bruits. Lungs are clear to auscultation. Cardiac exam reveals regular rate and Rhythm. First and second heart sounds normal. No murmurs, rubs or gallops. Abdominal exam reveals normal bowel sounds, no masses, no organomegaly and no aortic enlargement. Extremities bilateral lower extremity edema. 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 No focal weakness. - Constitutional Vitals: Temp Pulse Resp BP Pulse Ox 99.6 F 79 18 146/95 94 04/27/18 05:14 04/27/18 07:51 04/27/18 05:14 04/27/18 05:14 04/27/18 05:14 General appearance: Present: no acute distress Results - Labs CBC & Chem 7: 04/25/18 05:17 04/27/18 06:55 Labs: Laboratory Last Values WBC 6.4 K/mm3 (4.5-11.0) 04/25/18 05:17 RBC 5.04 M/mm3 (3.65-5.03) H 04/25/18 05:17 Hgb 13.8 gm/dl (11.8-15.2) 04/25/18 05:17 Hct 43.0 % (35.5-45.6) 04/25/18 05:17 MCV 85 fl (84-94) 04/25/18 05:17 MCH 27 pg (28-32) L 04/25/18 05:17 MCHC 32 % (32-34) 04/25/18 05:17 RDW 18.2 % (13.2-15.2) H 04/25/18 05:17 Plt Count 302 K/mm3 (140-440) 04/25/18 05:17 Lymph % (Auto) 15.8 % (13.4-35.0) 04/25/18 05:17 [place] % (Auto) 9.9 % (0.0-7.3) H 04/25/18 05:17 Eos % (Auto) 3.4 % (0.0-4.3) 04/25/18 05:17 Baso % (Auto) 1.2 % (0.0-1.8) 04/25/18 05:17 Lymph # 1.0 K/mm3 (1.2-5.4) L 04/25/18 05:17 [place] # 0.6 K/mm3 (0.0-0.8) 04/25/18 05:17 Eos # 0.2 K/mm3 (0.0-0.4) 04/25/18 05:17 Baso # 0.1 K/mm3 (0.0-0.1) 04/25/18 05:17 Seg Neutrophils % 69.7 % (40.0-70.0) 04/25/18 05:17 Seg Neutrophils # 4.5 K/mm3 (1.8-7.7) 04/25/18 05:17 Sodium 144 mmol/L (137-145) 04/27/18 06:55 Potassium 4.5 mmol/L (3.6-5.0) 04/27/18 06:55 Chloride 101.0 mmol/L (98-107) 04/27/18 06:55 Carbon Dioxide 23 mmol/L (22-30) 04/27/18 06:55 Anion Gap 25 mmol/L 04/27/18 06:55 BUN 52 mg/dL (9-20) H 04/27/18 06:55 Creatinine 3.0 mg/dL (0.8-1.5) H 04/27/18 06:55 Estimated GFR 27 ml/min 04/27/18 06:55 BUN/Creatinine Ratio 17 % 04/27/18 06:55 Glucose 93 mg/dL (75-100) 04/27/18 06:55 Hemoglobin A1c 6.3 % (4-6) H 04/24/18 09:49 Calcium 8.5 mg/dL (8.4-10.2) 04/27/18 06:55 Total Bilirubin 1.20 mg/dL (0.1-1.2) 04/25/18 05:17 AST 18 units/L (5-40) 04/25/18 05:17 ALT 15 units/L (7-56) 04/25/18 05:17 Alkaline Phosphatase 63 units/L (35-129) 04/25/18 05:17 Troponin T 0.070 ng/mL (0.00-0.029) H 04/24/18 07:01 NT-Pro-B Natriuret Pep 95994 pg/mL (0-450) H 04/24/18 07:01 Total Protein 5.8 g/dL (6.3-8.2) L 04/25/18 05:17 Albumin 2.4 g/dL (3.9-5) L 04/25/18 05:17 Albumin/Globulin Ratio 0.7 % 04/25/18 05:17 Triglycerides 110 mg/dL (2-149) 04/24/18 07:01 Cholesterol 115 mg/dL (50-199) 04/24/18 07:01 LDL Cholesterol Direct 78 mg/dL (50-130) 04/24/18 07:01 HDL Cholesterol 24 mg/dL (40-59) L 04/24/18 07:01 Cholesterol/HDL Ratio 4.79 % 04/24/18 07:01 Urine Total Volume 4400 04/26/18 Unknown Urine Creatinine 35.6 mg/dL (0.1-20.0) H 04/26/18 Unknown Ur Creatinine 24 Hour 1.6 (0.8-2.8) 04/26/18 Unknown Height (in) 69.0 inches 04/25/18 09:05 Weight (lb) 235.4 lbs 04/25/18 09:05 Creatinine Clearance 24 04/25/18 09:05 Ur Total Protein 24 Hr 1056.00 (2-200) H 04/26/18 Unknown Protein/Creatinin Ratio 0.67 04/26/18 Unknown Urine Total Protein 24 mg/dL (5-11.8) H 04/26/18 Unknown
[2018-04-27] MEDS: COREG PO SCH ×2 (10:50→21:25)
[2018-04-27] MEDS: HEPARIN SUB-Q SCH ×2 (10:51→21:26)
[2018-04-27] MEDS: PEPCID PO SCH (10:52)
[2018-04-27] MEDS: SODIUM CHLORIDE FLUSH SYRINGE 10 ML IV SCH ×2 (10:52→21:27)
--- NOTE | 2018-04-27 12:55 | Progress Note ---
Assessment and Plan Acute systolic heart failure Dilated CMP - EF 15-20% RV systolic dysfunction Uncontrolled HTN Acute renal failure Pulmonary HTN with RVSP 60mmHg Severe TR Obesity Medical noncompliance Plan: Change hydralazine to Bidil which is good for CHF in AA. Spoke with Pharmacist. Computer prompting as duplicate order in spite of DC hydralazine. Patient may not be able to afford BIDIL because of no medical insurance.Upon discharge will change to combination of hydralazine and imdur (close to dosage in BIDIL0 . Subjective Date of service: 04/27/18 Principal diagnosis: Hypertensive emergency,CHF exacerbation Interval history: Feeling better. Swelling is less. BP is better Objective Vital Signs Temp Pulse Resp BP Pulse Ox 04/27/18 10:50 72 04/27/18 07:51 79 04/27/18 05:14 99.6 F 80 18 146/95 94 04/27/18 00:24 99.0 F 82 20 142/95 95 04/26/18 22:00 66 18 04/26/18 20:11 98.6 F 79 18 149/96 95 04/26/18 16:00 98.9 F 04/26/18 15:37 65 20 141/100 98 - Physical Examination General: No Apparent Distress HEENT: Positive: PERRL, Normocephaly, Mucus Membranes Moist Neck: Positive: neck supple, trachea midline. Negative: JVD/HJR Cardiac: Positive: Reg Rate and Rhythm, S3 Lungs: Positive: clear to auscultation Neuro: Positive: Grossly Intact Abdomen: Positive: Tender, Other (edematous ) Skin: Positive: Clear. Negative: Rash, Wound Musculoskeletal: No Pain Extremities: Present: +1 Edema. Absent: +2 Edema, +3 Edema - Labs and Meds Comprehensive Metabolic Panel 04/27/18 Range/Units 06:55 Sodium 144 (137-145) mmol/L Potassium 4.5 (3.6-5.0) mmol/L Chloride 101.0 (98-107) mmol/L Carbon Dioxide 23 (22-30) mmol/L BUN 52 H (9-20) mg/dL Creatinine 3.0 H (0.8-1.5) mg/dL Glucose 93 (75-100) mg/dL Calcium 8.5 (8.4-10.2) mg/dL - Imaging and Cardiology EKG: report reviewed, image reviewed Echo: report reviewed (04/24/2018: EF 15-20%, mod LVH, LV mildly dilated, RV severely dilated, RV systolic function mildly reduced, pulm HTN with RVSP 60mmHg , severe TR. ) - Telemetry EKG Rhythm: Sinus Rhythm - EKG Sinus rhythms and dysrhythmias: sinus rhythm Chamber hypertrophy or enlargement: left ventricular hypertro Repolarization changes or abnormalities: repolarization abn secondary to ventricular hypertrophy
[2018-04-28] MEDS: PERCOCET 5/325 PO PRN ×4 (01:13→18:31)
[2018-04-28] MEDS: BIDIL 20/37.5MG PO SCH ×3 (05:38→22:12)
[2018-04-28] MEDS: LASIX IV SCH ×2 (05:39→18:30)
[2018-04-28 06:15] LABS: Calcium 8.1 mg/dL (8.4-10.2)
[2018-04-28] MEDS: PEPCID PO SCH (09:19)
[2018-04-28] MEDS: COREG PO SCH ×3 (09:19→22:11)
[2018-04-28] MEDS: HEPARIN SUB-Q SCH ×2 (09:19→22:11)
--- NOTE | 2018-04-28 09:40 | Progress Note ---
Assessment and Plan Assessment and plan: Patient is a 47-year-old male with history of congestive heart failure and hypertension presented to the ER complaining of shortness of breath and generalized body swelling mainly abdomen and lower extremity. Patient stated that he is out of his medication for 2 months so far. Denied any chest pain, fever or cough.No recent travel. Acute on chronic systolic CHF -Ejection fraction 15-20% -Patient is on IV Lasix, net out put of 2.1 L -Patient is on carvedilol and BiDil -Cardiology consulted and will get records from [place] Uncontrolled hypertension - Continue carvedilol and BiDil, still uncontrolled, amlodipine added - We've discontinued losartan because of renal failure Acute on chronic renal failure - Nephrology consult appreciated - Slight improvement in creatinine Medication noncompliance - Patient counseled about adherence DVT prophylaxis - On heparin Disposition - Continue inpatient care History Interval history: Patient was seen and evaluated this morning, SOB is getting better. Mild bilateral leg swelling. Patient is complaining right thumb joint swelling. Hospitalist Physical - Physical exam Narrative exam: Not in cardiopulmonary distress. The patient is morbidly obese. Vital signs as documented. Head exam is unremarkable. No scleral icterus . Neck is without jugular venous distension, thyromegaly, or carotid bruits. Lungs are clear to auscultation. Cardiac exam reveals regular rate and Rhythm. First and second heart sounds normal. No murmurs, rubs or gallops. Abdominal exam reveals normal bowel sounds, no masses, no organomegaly and no aortic enlargement. Extremities bilateral lower extremity edema. Left thumb joint swelling. 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 No focal weakness. - Constitutional Vitals: Temp Pulse Resp BP Pulse Ox 99.1 F 79 18 160/109 95 04/28/18 07:18 04/28/18 07:18 04/28/18 07:18 04/28/18 07:18 04/28/18 07:18 General appearance: Present: no acute distress Results - Labs CBC & Chem 7: 04/25/18 05:17 04/28/18 05:34 Labs: Laboratory Last Values WBC 6.4 K/mm3 (4.5-11.0) 04/25/18 05:17 RBC 5.04 M/mm3 (3.65-5.03) H 04/25/18 05:17 Hgb 13.8 gm/dl (11.8-15.2) 04/25/18 05:17 Hct 43.0 % (35.5-45.6) 04/25/18 05:17 MCV 85 fl (84-94) 04/25/18 05:17 MCH 27 pg (28-32) L 04/25/18 05:17 MCHC 32 % (32-34) 04/25/18 05:17 RDW 18.2 % (13.2-15.2) H 04/25/18 05:17 Plt Count 302 K/mm3 (140-440) 04/25/18 05:17 Lymph % (Auto) 15.8 % (13.4-35.0) 04/25/18 05:17 [place] % (Auto) 9.9 % (0.0-7.3) H 04/25/18 05:17 Eos % (Auto) 3.4 % (0.0-4.3) 04/25/18 05:17 Baso % (Auto) 1.2 % (0.0-1.8) 04/25/18 05:17 Lymph # 1.0 K/mm3 (1.2-5.4) L 04/25/18 05:17 [place]eld # 0.6 K/mm3 (0.0-0.8) 04/25/18 05:17 Eos # 0.2 K/mm3 (0.0-0.4) 04/25/18 05:17 Baso # 0.1 K/mm3 (0.0-0.1) 04/25/18 05:17 Seg Neutrophils % 69.7 % (40.0-70.0) 04/25/18 05:17 Seg Neutrophils # 4.5 K/mm3 (1.8-7.7) 04/25/18 05:17 Sodium 141 mmol/L (137-145) 04/28/18 05:34 Potassium 3.8 mmol/L (3.6-5.0) 04/28/18 05:34 Chloride 100.6 mmol/L (98-107) 04/28/18 05:34 Carbon Dioxide 26 mmol/L (22-30) 04/28/18 05:34 Anion Gap 18 mmol/L 04/28/18 05:34 BUN 46 mg/dL (9-20) H 04/28/18 05:34 Creatinine 2.8 mg/dL (0.8-1.5) H 04/28/18 05:34 Estimated GFR 30 ml/min 04/28/18 05:34 BUN/Creatinine Ratio 16 % 04/28/18 05:34 Glucose 94 mg/dL (75-100) 04/28/18 05:34 Hemoglobin A1c 6.3 % (4-6) H 04/24/18 09:49 Calcium 8.1 mg/dL (8.4-10.2) L 04/28/18 05:34 Total Bilirubin 1.20 mg/dL (0.1-1.2) 04/25/18 05:17 AST 18 units/L (5-40) 04/25/18 05:17 ALT 15 units/L (7-56) 04/25/18 05:17 Alkaline Phosphatase 63 units/L (35-129) 04/25/18 05:17 Troponin T 0.070 ng/mL (0.00-0.029) H 04/24/18 07:01 NT-Pro-B Natriuret Pep 29820 pg/mL (0-450) H 04/24/18 07:01 Total Protein 5.8 g/dL (6.3-8.2) L 04/25/18 05:17 Albumin 2.4 g/dL (3.9-5) L 04/25/18 05:17 Albumin/Globulin Ratio 0.7 % 04/25/18 05:17 Triglycerides 110 mg/dL (2-149) 04/24/18 07:01 Cholesterol 115 mg/dL (50-199) 04/24/18 07:01 LDL Cholesterol Direct 78 mg/dL (50-130) 04/24/18 07:01 HDL Cholesterol 24 mg/dL (40-59) L 04/24/18 07:01 Cholesterol/HDL Ratio 4.79 % 04/24/18 07:01 Urine Total Volume 4400 04/26/18 Unknown Urine Creatinine 35.6 mg/dL (0.1-20.0) H 04/26/18 Unknown Ur Creatinine 24 Hour 1.6 (0.8-2.8) 04/26/18 Unknown Height (in) 69.0 inches 04/25/18 09:05 Weight (lb) 235.4 lbs 08/24/18 09:05 Creatinine Clearance 24 04/25/18 09:05 Ur Total Protein 24 Hr 1056.00 (2-200) H 04/26/18 Unknown Protein/Creatinin Ratio 0.67 04/26/18 Unknown Urine Total Protein 24 mg/dL (5-11.8) H 04/26/18 Unknown
--- NOTE | 2018-04-28 10:12 | Progress Note ---
Assessment and Plan Impression: * Acute kidney injury vs chronic kidney disease 3/4 secondary to cardiorenal syndrome * Acute on chronic systolic heart failure - EF 15-20% * Anasarca * Hypertension Plan: * Baseline renal function is unknown. However, patient likely has underlying chronic kidney disease. There is no indication for renal replacement at this time * Continue IV diuresis * crcl is 24 with 1gram protein * cr is better * Strict I/O w/ 1500ml/fluid restriction ordered * noted renal ultrasound * Avoid nephrotoxins - patient instructed to avoid NSAID use in future * Dose medications for renal function * ok to dc from renal standpoint, follow up in office in 1 to 2weeks Subjective Date of service: 04/28/18 Principal diagnosis: Hypertensive emergency,CHF exacerbation Interval history: resting in bed today Objective - Exam Narrative Exam: General appearance: well-developed, well-nourished Heart: regular, S1S2 Gastrointestinal: Present: normal. Absent: tenderness, distended Integumentary: no rash, warm and dry Neurologic: alert and oriented x3 Psychiatric: cooperative - Vital Signs Vital signs: Vital Signs - 12hr 04/28/18 04/28/18 04/28/18 00:30 01:13 04:20 Temperature 97.9 F 98.3 F Pulse Rate 81 74 Respiratory 20 20 22 Rate Blood Pressure 166/105 154/100 O2 Sat by Pulse 94 91 Oximetry 04/28/18 04/28/18 05:38 07:18 Temperature 99.1 F Pulse Rate 74 79 Respiratory 18 Rate Blood Pressure 154/100 160/109 O2 Sat by Pulse 95 Oximetry - Lab 04/25/18 05:17 04/28/18 05:34 Most recent lab results Calcium 8.1 mg/dL (8.4-10.2) L 04/28/18 05:34 Urine Creatinine 35.6 mg/dL (0.1-20.0) H 04/26/18 Unknown Ur Total Protein 24 Hr 1056.00 (2-200) H 04/26/18 Unknown Urine Total Protein 24 mg/dL (5-11.8) H 04/26/18 Unknown
[2018-04-28] MEDS: SODIUM CHLORIDE FLUSH SYRINGE 10 ML IV SCH ×2 (11:04→22:12)
--- NOTE | 2018-04-28 11:07 | XRay Report ---
RIGHT HAND, 3 views: History: Pain and swelling of the right thumb The bony architecture is intact. Bony alignment is normal. No soft tissue abnormalities are seen. The joint spaces appear preserved. IMPRESSION: Right hand within normal limits. No abnormality of the right thumb is appreciated.
--- NOTE | 2018-04-28 12:25 | Progress Note ---
Assessment and Plan Optimize anti-hypertensive regimen - increase coreg and initiate amlodipine and clonidine. No ACEI/ARB at this time in setting of renal insufficiency. Ischemic evaluation recommended for further eval of CMP. Will proceed with lexiscan MPI stress test in AM. NPO after MN. Can consider LHC and/or RHC (if indicated) in the future once renal function is optimized. Cardiac defibrillator recommended in setting of NSVT and CMP. Pt is agreeable to LifeVest at this time and will plan to readdress AICD candidacy as OP. LifeVest ordered. Assessment and plan reviewed with pt at bedside. The patient has been seen in conjunction with Dr. Su who agrees with the assessment and plan of care. - Patient Problems (1) Acute systolic heart failure Current Visit: Yes Status: Acute (2) Dilated cardiomyopathy Current Visit: Yes Status: Chronic (3) Right ventricular systolic dysfunction Current Visit: Yes Status: Chronic (4) Uncontrolled hypertension Current Visit: Yes Status: Chronic (5) Pulmonary HTN Current Visit: Yes Status: Chronic (6) Acute renal failure Current Visit: Yes Status: Acute Qualifiers: Acute renal failure type: with acute tubular necrosis Qualified Code(s): N17.0 - Acute kidney failure with tubular necrosis (7) Severe tricuspid regurgitation Current Visit: Yes Status: Chronic (8) NSVT (nonsustained ventricular tachycardia) Current Visit: Yes Status: Acute (9) Obesity Current Visit: Yes Status: Chronic (10) Medical non-compliance Current Visit: Yes Status: Chronic Subjective Date of service: 04/28/18 Principal diagnosis: Hypertensive emergency,CHF exacerbation Interval history: Pt sitting up comfortably at bedside, states SOB and BLE edema are improving. tele reviewed - pt currently in SR, had 19 beat NSVT overnight. Objective Last Vital Signs Temp 99.1 F 04/28/18 07:18 Pulse 79 04/28/18 10:00 Resp 18 04/28/18 07:18 BP 160/109 04/28/18 07:18 Pulse Ox 95 04/28/18 07:18 - Physical Examination General: No Apparent Distress HEENT: Positive: PERRL, Normocephaly, Mucus Membranes Moist Neck: Positive: neck supple, trachea midline. Negative: JVD/HJR Cardiac: Positive: Reg Rate and Rhythm, S1/S2 Lungs: Positive: Decreased Breath Sounds Neuro: Positive: Grossly Intact Abdomen: Positive: Tender, Other (edematous ) Skin: Positive: Clear. Negative: Rash, Wound Musculoskeletal: No Pain Extremities: Present: +1 Edema. Absent: +2 Edema, +3 Edema - Labs and Meds Comprehensive Metabolic Panel 04/28/18 Range/Units 05:34 Sodium 141 (137-145) mmol/L Potassium 3.8 (3.6-5.0) mmol/L Chloride 100.6 (98-107) mmol/L Carbon Dioxide 26 (22-30) mmol/L BUN 46 H (9-20) mg/dL Creatinine 2.8 H (0.8-1.5) mg/dL Glucose 94 (75-100) mg/dL Calcium 8.1 L (8.4-10.2) mg/dL - Imaging and Cardiology EKG: report reviewed, image reviewed Echo: report reviewed (04/24/2018: EF 15-20%, mod LVH, LV mildly dilated, RV severely dilated, RV systolic function mildly reduced, pulm HTN with RVSP 60mmHg , severe TR. ) - Telemetry EKG Rhythm: Sinus Rhythm - EKG Sinus rhythms and dysrhythmias: sinus rhythm Chamber hypertrophy or enlargement: left ventricular hypertro Repolarization changes or abnormalities: repolarization abn secondary to ventricular hypertrophy
[2018-04-28] MEDS: NORVASC PO SCH (13:44)
[2018-04-28] MEDS: DELTASONE PO SCH (13:44)
[2018-04-28] MEDS: CATAPRES PO SCH ×2 (13:44→22:11)
[2018-04-28 21:08] LABS: Albumin 2.3 g/dL (3.8-4.8); Gamma Globulin 1.6 g/dL (0.8-1.7)
[2018-04-29] MEDS: BIDIL 20/37.5MG PO SCH ×3 (05:22→21:49)
[2018-04-29] MEDS: LASIX IV SCH ×2 (05:22→19:23)
[2018-04-29 08:10] LABS: Calcium 8.7 mg/dL (8.4-10.2)
--- NOTE | 2018-04-29 09:02 | Progress Note ---
Assessment and Plan Assessment and plan: Patient is a 47-year-old male with history of congestive heart failure and hypertension presented to the ER complaining of shortness of breath and generalized body swelling mainly abdomen and lower extremity. Patient stated that he is out of his medication for 2 months so far. Denied any chest pain, fever or cough.No recent travel. Acute on chronic systolic CHF -Ejection fraction 15-20% -Patient is on IV Lasix, net out put of 2.1 L -Patient is on carvedilol and BiDil -Cardiology consulted and will get records from [place] -Patient will have stress test -Patient needs life vest for now and will need AICD as an O/P Uncontrolled hypertension - Continue carvedilol and BiDil, amlodipine, Now controlled - We've discontinued losartan because of renal failure Acute on chronic renal failure - Nephrology consult appreciated - Slight improvement in creatinine Medication noncompliance - Patient counseled about adherence DVT prophylaxis - On heparin Disposition - Continue inpatient care - Patient need lifevest History Interval history: Patient was seen and evaluated this morning, SOB is getting better. Mild bilateral leg swelling. Patient is complaining right thumb joint swelling. Hospitalist Physical - Physical exam Narrative exam: Not in cardiopulmonary distress. The patient is morbidly obese. Vital signs as documented. Head exam is unremarkable. No scleral icterus . Neck is without jugular venous distension, thyromegaly, or carotid bruits. Lungs are clear to auscultation. Cardiac exam reveals regular rate and Rhythm. First and second heart sounds normal. No murmurs, rubs or gallops. Abdominal exam reveals normal bowel sounds, no masses, no organomegaly and no aortic enlargement. Extremities bilateral lower extremity edema. Left thumb joint swelling. 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 No focal weakness. - Constitutional Vitals: Temp Pulse Resp BP Pulse Ox 98.0 F 78 18 127/81 98 04/29/18 07:25 04/29/18 08:40 04/29/18 07:25 04/29/18 07:25 04/29/18 08:41 General appearance: Present: no acute distress Results - Labs CBC & Chem 7: 04/25/18 05:17 04/29/18 07:13 Labs: Laboratory Last Values WBC 6.4 K/mm3 (4.5-11.0) 04/25/18 05:17 RBC 5.04 M/mm3 (3.65-5.03) H 04/25/18 05:17 Hgb 13.8 gm/dl (11.8-15.2) 04/25/18 05:17 Hct 43.0 % (35.5-45.6) 04/25/18 05:17 MCV 85 fl (84-94) 04/25/18 05:17 MCH 27 pg (28-32) L 04/25/18 05:17 MCHC 32 % (32-34) 04/25/18 05:17 RDW 18.2 % (13.2-15.2) H 04/25/18 05:17 Plt Count 302 K/mm3 (140-440) 04/25/18 05:17 Lymph % (Auto) 15.8 % (13.4-35.0) 04/25/18 05:17 [place] % (Auto) 9.9 % (0.0-7.3) H 04/25/18 05:17 Eos % (Auto) 3.4 % (0.0-4.3) 04/25/18 05:17 Baso % (Auto) 1.2 % (0.0-1.8) 04/25/18 05:17 Lymph # 1.0 K/mm3 (1.2-5.4) L 04/25/18 05:17 [place] # 0.6 K/mm3 (0.0-0.8) 04/25/18 05:17 Eos # 0.2 K/mm3 (0.0-0.4) 04/25/18 05:17 Baso # 0.1 K/mm3 (0.0-0.1) 04/25/18 05:17 Seg Neutrophils % 69.7 % (40.0-70.0) 04/25/18 05:17 Seg Neutrophils # 4.5 K/mm3 (1.8-7.7) 04/25/18 05:17 Sodium 136 mmol/L (137-145) L 04/29/18 07:13 Potassium 4.2 mmol/L (3.6-5.0) 04/29/18 07:13 Chloride 97.8 mmol/L (98-107) L 04/29/18 07:13 Carbon Dioxide 27 mmol/L (22-30) 04/29/18 07:13 Anion Gap 15 mmol/L 04/29/18 07:13 BUN 45 mg/dL (9-20) H 04/29/18 07:13 Creatinine 2.7 mg/dL (0.8-1.5) H 04/29/18 07:13 Estimated GFR 31 ml/min 04/29/18 07:13 BUN/Creatinine Ratio 17 % 04/29/18 07:13 Glucose 125 mg/dL (75-100) H 04/29/18 07:13 Hemoglobin A1c 6.3 % (4-6) H 04/24/18 09:49 Calcium 8.7 mg/dL (8.4-10.2) 04/29/18 07:13 Total Bilirubin 1.20 mg/dL (0.1-1.2) 04/25/18 05:17 AST 18 units/L (5-40) 04/25/18 05:17 ALT 15 units/L (7-56) 04/25/18 05:17 Alkaline Phosphatase 63 units/L (35-129) 04/25/18 05:17 Troponin T 0.070 ng/mL (0.00-0.029) H 04/24/18 07:01 NT-Pro-B Natriuret Pep 87450 pg/mL (0-450) H 04/24/18 07:01 Serum Total Protein 5.4 g/dL (6.1-8.1) L 04/25/18 10:11 Total Protein 5.8 g/dL (6.3-8.2) L 04/25/18 05:17 Albumin 2.3 g/dL (3.8-4.8) L 04/25/18 10:11 Albumin/Globulin Ratio 0.7 % 04/25/18 05:17 Wkrvt-8-Andfzwise 0.3 g/dL (0.2-0.3) 04/25/18 10:11 Vqpgy-4-Clchtlzrg 0.6 g/dL (0.5-0.9) 04/25/18 10:11 Beta Globulins 0.3 g/dL (0.2-0.5) 04/25/18 10:11 Gamma Globulins 1.6 g/dL (0.8-1.7) 04/25/18 10:11 Abnorm Protein Band 1 see below 04/25/18 10:11 PEP Interpretation see below H 04/25/18 10:11 Triglycerides 110 mg/dL (2-149) 04/24/18 07:01 Cholesterol 115 mg/dL (50-199) 04/24/18 07:01 LDL Cholesterol Direct 78 mg/dL (50-130) 04/24/18 07:01 HDL Cholesterol 24 mg/dL (40-59) L 04/24/18 07:01 Cholesterol/HDL Ratio 4.79 % 04/24/18 07:01 Urine Total Volume 4400 04/26/18 Unknown Urine Creatinine 35.6 mg/dL (0.1-20.0) H 04/26/18 Unknown Ur Creatinine 24 Hour 1.6 (0.8-2.8) 04/26/18 Unknown Height (in) 69.0 inches 04/25/18 09:05 Weight (lb) 235.4 lbs 04/25/18 09:05 Creatinine Clearance 24 04/25/18 09:05 Ur Total Protein 24 Hr 1056.00 (2-200) H 04/26/18 Unknown Protein/Creatinin Ratio 0.67 04/26/18 Unknown Urine Total Protein 24 mg/dL (5-11.8) H 04/26/18 Unknown Complement C3 105 mg/dL (82-185) 04/25/18 10:11 Complement C4 25 mg/dL (15-53) 04/25/18 10:11
[2018-04-29] MEDS ORDERED: LEXISCAN IV ONE ×2 (09:23→09:27)
--- NOTE | 2018-04-29 09:57 | Progress Note ---
Assessment and Plan Impression: * Acute kidney injury vs chronic kidney disease 3/4 secondary to cardiorenal syndrome * Acute on chronic systolic heart failure - EF 15-20% * Anasarca * Hypertension Plan: * Baseline renal function is unknown. However, patient likely has underlying chronic kidney disease. There is no indication for renal replacement at this time * Continue IV diuresis * crcl is 24ml/min with 1gram protein * cr is stable * agree with ischemic workup * Strict I/O w/ 1500ml/fluid restriction ordered * noted renal ultrasound * Avoid nephrotoxins - patient instructed to avoid NSAID use in future * Dose medications for renal function * ok to dc from renal standpoint, follow up in office in 1 to 2weeks Subjective Date of service: 04/29/18 Principal diagnosis: Hypertensive emergency,CHF exacerbation Interval history: resting in bed today Objective - Exam Narrative Exam: General appearance: well-developed, well-nourished Heart: regular, S1S2 Gastrointestinal: Present: normal. Absent: tenderness, distended Integumentary: no rash, warm and dry Neurologic: alert and oriented x3 Psychiatric: cooperative - Vital Signs Vital signs: Vital Signs - 12hr 04/28/18 04/29/18 04/29/18 22:00 00:45 04:37 Temperature 98.1 F 98.3 F Pulse Rate 74 72 57 L Respiratory 18 18 18 Rate Blood Pressure 127/73 125/72 O2 Sat by Pulse 94 90 Oximetry 04/29/18 04/29/18 04/29/18 07:25 08:40 08:41 Temperature 98.0 F Pulse Rate 71 78 Respiratory 18 Rate Blood Pressure 127/81 O2 Sat by Pulse 94 98 Oximetry - Lab 04/25/18 05:17 04/29/18 07:13 Most recent lab results Calcium 8.7 mg/dL (8.4-10.2) 04/29/18 07:13 Urine Creatinine 35.6 mg/dL (0.1-20.0) H 04/26/18 Unknown Ur Total Protein 24 Hr 1056.00 (2-200) H 04/26/18 Unknown Urine Total Protein 24 mg/dL (5-11.8) H 04/26/18 Unknown
--- NOTE | 2018-04-29 11:01 | Progress Note ---
Assessment and Plan Cont present cardiac regimen. No ACEI/ARB at this time in setting of renal insufficiency. Proceed with lexiscan MPI stress test. Await findings. Obtain serum Mg. Await LifeVest placement. Assessment and plan reviewed with pt at bedside. The patient has been seen in conjunction with Dr. Su who agrees with the assessment and plan of care. - Patient Problems (1) Acute systolic heart failure Current Visit: Yes Status: Acute (2) Dilated cardiomyopathy Current Visit: Yes Status: Chronic (3) Right ventricular systolic dysfunction Current Visit: Yes Status: Chronic (4) Uncontrolled hypertension Current Visit: Yes Status: Chronic (5) Pulmonary HTN Current Visit: Yes Status: Chronic (6) Acute renal failure Current Visit: Yes Status: Acute Qualifiers: Acute renal failure type: with acute tubular necrosis Qualified Code(s): N17.0 - Acute kidney failure with tubular necrosis (7) Severe tricuspid regurgitation Current Visit: Yes Status: Chronic (8) NSVT (nonsustained ventricular tachycardia) Current Visit: Yes Status: Acute (9) Obesity Current Visit: Yes Status: Chronic (10) Medical non-compliance Current Visit: Yes Status: Chronic Subjective Date of service: 04/29/18 Principal diagnosis: Hypertensive emergency,CHF exacerbation Interval history: Pt for stress test today. no current complaints. tele reviewed - pt had 19 beat NSVT overnight. Objective Last Vital Signs Temp 98.0 F 04/29/18 07:25 Pulse 78 04/29/18 08:40 Resp 18 04/29/18 07:25 BP 127/81 04/29/18 07:25 Pulse Ox 98 04/29/18 08:41 - Physical Examination General: No Apparent Distress HEENT: Positive: PERRL, Normocephaly, Mucus Membranes Moist Neck: Positive: neck supple, trachea midline. Negative: JVD/HJR Cardiac: Positive: Reg Rate and Rhythm, S1/S2 Lungs: Positive: Decreased Breath Sounds Neuro: Positive: Grossly Intact Abdomen: Positive: Tender, Other (edematous ) Skin: Positive: Clear. Negative: Rash, Wound Musculoskeletal: No Pain Extremities: Present: +1 Edema. Absent: +2 Edema, +3 Edema - Labs and Meds Comprehensive Metabolic Panel 04/25/18 04/29/18 Range/Units 10:11 07:13 Sodium 136 L (137-145) mmol/L Potassium 4.2 (3.6-5.0) mmol/L Chloride 97.8 L (98-107) mmol/L Carbon Dioxide 27 (22-30) mmol/L BUN 45 H (9-20) mg/dL Creatinine 2.7 H (0.8-1.5) mg/dL Glucose 125 H (75-100) mg/dL Calcium 8.7 (8.4-10.2) mg/dL Albumin 2.3 L (3.8-4.8) g/dL - Imaging and Cardiology EKG: report reviewed, image reviewed Echo: report reviewed (04/24/2018: EF 15-20%, mod LVH, LV mildly dilated, RV severely dilated, RV systolic function mildly reduced, pulm HTN with RVSP 60mmHg , severe TR. ) - Telemetry EKG Rhythm: Sinus Rhythm - EKG Sinus rhythms and dysrhythmias: sinus rhythm Chamber hypertrophy or enlargement: left ventricular hypertro Repolarization changes or abnormalities: repolarization abn secondary to ventricular hypertrophy
[2018-04-29] MEDS: CATAPRES PO SCH ×2 (12:01→21:49)
[2018-04-29] MEDS: COREG PO SCH ×2 (12:01→21:50)
[2018-04-29] MEDS: DELTASONE PO SCH (12:01)
[2018-04-29] MEDS: HEPARIN SUB-Q SCH ×2 (12:02→21:52)
[2018-04-29] MEDS: PEPCID PO SCH (12:03)
[2018-04-29] MEDS: NORVASC PO SCH (12:03)
--- NOTE | 2018-04-29 15:51 | Treadmill Report ---
REASON FOR STUDY: Cardiomyopathy and heart failure with nonsustained VT. STRESS TEST PROTOCOL: The patient received 0.4 mg of Lexiscan intravenously over 10 seconds. Technetium-99m Tetrofosmin was subsequently injected. Baseline EKG, sinus bradycardia. T-wave abnormality. Consider inferior and anterolateral ischemia. Lexiscan EKG, no significant change from baseline. No chest pain. No arrhythmias. IMPRESSION: Nondiagnostic due to baseline EKG abnormalities. Nuclear imaging report to follow. JOB# [id number] AGO/NTS
[2018-04-29 20:42] LABS: Myeloperoxidase Antibody <1.0 AI (<1.0)
[2018-04-29] MEDS: SODIUM CHLORIDE FLUSH SYRINGE 10 ML IV SCH ×2 (21:55)
[2018-04-29 22:31] LABS: ANA Screen, IFA Negative (Negative)
--- NOTE | 2018-04-30 01:16 | Treadmill Report ---
THALLIUM REPORT REASON FOR STUDY: Cardiomyopathy and nonsustained ventricular tachycardia. IMAGING PROTOCOL: The patient received 10 mCi of technetium-99m Tetrofosmin for rest imaging and 28 mCi of technetium-99m Tetrofosmin for stress imaging. Imaging for all procedures was completed 30-90 minutes following the initial injection of Technetium 99m Tetrofosmin. SPECT imaging in the 180 degree arc was performed in the right anterior oblique projection. Computerized reconstruction of the images was performed for analysis. NUCLEAR IMAGING RESULTS: Normal left ventricular cavity size with no change from stress to rest. Distribution of radionuclide within the left ventricle revealed a large area of photo-induction involving the inferior and inferoapical wall. The degree of photo-induction is moderate to severe. Rest imaging does not show any significant improvement in this defect. Gated SPECT imaging revealed severe global left ventricular hypokinesis. The calculated left ventricular ejection fraction is 19%. IMPRESSION: Large fixed inferior and inferoapical defect. Severe global left ventricular hypokinesis. EF 19%. These findings suggest prior infarction in the right coronary artery territory. In addition, a cardiomyopathic process may be present in this patient. No evidence of significant stress-induced ischemia. JOB# [id number] CHAD/ADEOLA
[2018-04-30 06:23] LABS: Calcium 8.8 mg/dL (8.4-10.2)
[2018-04-30] MEDS: BIDIL 20/37.5MG PO SCH ×3 (06:47→22:13)
[2018-04-30] MEDS: LASIX IV SCH ×2 (06:47→18:03)
[2018-04-30] MEDS: NORVASC PO SCH (11:16)
[2018-04-30] MEDS: DELTASONE PO SCH (11:17)
[2018-04-30] MEDS: CATAPRES PO SCH ×2 (11:17→22:14)
[2018-04-30] MEDS: COREG PO SCH ×2 (11:17→22:14)
[2018-04-30] MEDS: HEPARIN SUB-Q SCH (11:19)
[2018-04-30] MEDS: PEPCID PO SCH (11:30)
--- NOTE | 2018-04-30 11:51 | Progress Note ---
Assessment and Plan S/p lexiscan MPI stress test yesterday which showed large fixed inferior and inferoapical defect, severe global LV hypokinesis, EF 19%, findings suggest prior infarction in the RCA territory, no evidence of significant stress- induced ischemia. Cont present cardiac regimen. No ACEI/ARB at this time in setting of renal insufficiency. Await LifeVest placement. Assessment and plan reviewed with pt at bedside. The patient has been seen in conjunction with Dr. Su who agrees with the assessment and plan of care. - Patient Problems (1) Acute systolic heart failure Current Visit: Yes Status: Acute (2) Dilated cardiomyopathy Current Visit: Yes Status: Chronic (3) Right ventricular systolic dysfunction Current Visit: Yes Status: Chronic (4) Uncontrolled hypertension Current Visit: Yes Status: Chronic (5) Pulmonary HTN Current Visit: Yes Status: Chronic (6) Acute renal failure Current Visit: Yes Status: Acute Qualifiers: Acute renal failure type: with acute tubular necrosis Qualified Code(s): N17.0 - Acute kidney failure with tubular necrosis (7) Severe tricuspid regurgitation Current Visit: Yes Status: Chronic (8) NSVT (nonsustained ventricular tachycardia) Current Visit: Yes Status: Acute (9) Obesity Current Visit: Yes Status: Chronic (10) Medical non-compliance Current Visit: Yes Status: Chronic Subjective Date of service: 04/30/18 Principal diagnosis: Hypertensive emergency,CHF exacerbation Interval history: Pt resting in bed, no current complaints. tele reviewed - pt was in NSR with no VT noted overnight. Objective Last Vital Signs Temp 97.6 F 04/30/18 07:33 Pulse 55 L 04/30/18 11:17 Resp 20 04/30/18 07:33 BP 143/86 04/30/18 07:33 Pulse Ox 95 04/30/18 07:33 - Physical Examination General: No Apparent Distress HEENT: Positive: PERRL, Normocephaly, Mucus Membranes Moist Neck: Positive: neck supple, trachea midline. Negative: JVD/HJR Cardiac: Positive: Reg Rate and Rhythm, S1/S2 Lungs: Positive: Decreased Breath Sounds Neuro: Positive: Grossly Intact Abdomen: Positive: Tender, Other (edematous ) Skin: Positive: Clear. Negative: Rash, Wound Musculoskeletal: No Pain Extremities: Present: +1 Edema. Absent: +2 Edema, +3 Edema - Labs and Meds Comprehensive Metabolic Panel 04/30/18 Range/Units 04:47 Sodium 139 (137-145) mmol/L Potassium 4.1 (3.6-5.0) mmol/L Chloride 100.8 (98-107) mmol/L Carbon Dioxide 27 (22-30) mmol/L BUN 46 H (9-20) mg/dL Creatinine 2.4 H (0.8-1.5) mg/dL Glucose 101 H (75-100) mg/dL Calcium 8.8 (8.4-10.2) mg/dL - Imaging and Cardiology EKG: report reviewed, image reviewed Echo: report reviewed (04/24/2018: EF 15-20%, mod LVH, LV mildly dilated, RV severely dilated, RV systolic function mildly reduced, pulm HTN with RVSP 60mmHg , severe TR. ) - Telemetry EKG Rhythm: Sinus Rhythm - EKG Sinus rhythms and dysrhythmias: sinus rhythm Chamber hypertrophy or enlargement: left ventricular hypertro Repolarization changes or abnormalities: repolarization abn secondary to ventricular hypertrophy
--- NOTE | 2018-04-30 15:06 | Progress Note ---
Assessment and Plan Impression: * Acute kidney injury vs chronic kidney disease 3/4 secondary to cardiorenal syndrome * Acute on chronic systolic heart failure - EF 15-20% * Anasarca * Hypertension Plan: * Baseline renal function is unknown. However, patient likely has underlying chronic kidney disease. There is no indication for renal replacement at this time * Continue IV diuresis * crcl is 24ml/min with 1gram protein * cr is stable * agree with ischemic workup, stress noted * Strict I/O w/ 1500ml/fluid restriction ordered * noted renal ultrasound * Avoid nephrotoxins - patient instructed to avoid NSAID use in future * Dose medications for renal function * ok to dc from renal standpoint, follow up in office in 1 to 2weeks Subjective Date of service: 04/30/18 Principal diagnosis: Hypertensive emergency,CHF exacerbation Interval history: resting in bed today Objective - Exam Narrative Exam: General appearance: well-developed, well-nourished Heart: regular, S1S2 Gastrointestinal: Present: normal. Absent: tenderness, distended Integumentary: no rash, warm and dry Neurologic: alert and oriented x3 Psychiatric: cooperative - Vital Signs Vital signs: Vital Signs - 12hr 04/30/18 04/30/18 04/30/18 06:36 06:47 07:33 Temperature 97.5 F L 97.6 F Pulse Rate 57 L 69 55 L Respiratory 18 20 Rate Blood Pressure 141/90 141/90 143/86 Blood Pressure [Left] O2 Sat by Pulse 95 95 Oximetry 04/30/18 04/30/18 11:17 11:59 Temperature 97.9 F Pulse Rate 55 L 54 L Respiratory 20 Rate Blood Pressure Blood Pressure 156/112 [Left] O2 Sat by Pulse 97 Oximetry - Lab 04/25/18 05:17 04/30/18 04:47 Most recent lab results Calcium 8.8 mg/dL (8.4-10.2) 04/30/18 04:47 Magnesium 2.30 mg/dL (1.7-2.3) 04/29/18 10:18 Urine Creatinine 35.6 mg/dL (0.1-20.0) H 04/26/18 Unknown Ur Total Protein 24 Hr 1056.00 (2-200) H 04/26/18 Unknown Urine Total Protein 24 mg/dL (5-11.8) H 04/26/18 Unknown
--- NOTE | 2018-04-30 15:28 | Progress Note ---
Assessment and Plan Assessment and plan: Patient is a 47-year-old male with history of congestive heart failure and hypertension presented to the ER complaining of shortness of breath and generalized body swelling mainly abdomen and lower extremity. Patient stated that he is out of his medication for 2 months so far. Denied any chest pain, fever or cough.No recent travel. Acute on chronic systolic CHF -Ejection fraction 15-20% -Patient is on IV Lasix, net out put of 2.1 L -Patient is on carvedilol and BiDil -Cardiology consulted and will get records from [place] -Patient has stress test and showed fixed defect, no acute ischemia -Patient needs life vest for now and will need AICD as an O/P Uncontrolled hypertension - Continue carvedilol and BiDil, amlodipine, Now controlled - We've discontinued losartan because of renal failure Acute on chronic renal failure - Nephrology consult appreciated - Slight improvement in creatinine Medication noncompliance - Patient counseled about adherence DVT prophylaxis - On heparin Disposition - Continue inpatient care - Patient need lifevest History Interval history: Patient was seen and evaluated this morning, SOB is getting better. Mild bilateral leg swelling. joint swelling is getting better. Hospitalist Physical - Physical exam Narrative exam: Not in cardiopulmonary distress. The patient is morbidly obese. Vital signs as documented. Head exam is unremarkable. No scleral icterus . Neck is without jugular venous distension, thyromegaly, or carotid bruits. Lungs are clear to auscultation. Cardiac exam reveals regular rate and Rhythm. First and second heart sounds normal. No murmurs, rubs or gallops. Abdominal exam reveals normal bowel sounds, no masses, no organomegaly and no aortic enlargement. Extremities bilateral lower extremity edema. Left thumb joint swelling. PSYCHIATRIC NURSING ASSISTANT: Alert and oriented 3. No focal weakness. - Constitutional Vitals: Temp Pulse Resp BP Pulse Ox 97.9 F 54 L 20 156/112 97 04/30/18 11:59 04/30/18 11:59 04/30/18 11:59 04/30/18 11:59 04/30/18 11:59 General appearance: Present: no acute distress Results - Labs CBC & Chem 7: 04/25/18 05:17 04/30/18 04:47 Labs: Laboratory Last Values WBC 6.4 K/mm3 (4.5-11.0) 04/25/18 05:17 RBC 5.04 M/mm3 (3.65-5.03) H 04/25/18 05:17 Hgb 13.8 gm/dl (11.8-15.2) 04/25/18 05:17 Hct 43.0 % (35.5-45.6) 04/25/18 05:17 MCV 85 fl (84-94) 04/25/18 05:17 MCH 27 pg (28-32) L 04/25/18 05:17 MCHC 32 % (32-34) 04/25/18 05:17 RDW 18.2 % (13.2-15.2) H 04/25/18 05:17 Plt Count 302 K/mm3 (140-440) 04/25/18 05:17 Lymph % (Auto) 15.8 % (13.4-35.0) 04/25/18 05:17 [place] % (Auto) 9.9 % (0.0-7.3) H 04/25/18 05:17 Eos % (Auto) 3.4 % (0.0-4.3) 04/25/18 05:17 Baso % (Auto) 1.2 % (0.0-1.8) 04/25/18 05:17 Lymph # 1.0 K/mm3 (1.2-5.4) L 04/25/18 05:17 [place] # 0.6 K/mm3 (0.0-0.8) 04/25/18 05:17 Eos # 0.2 K/mm3 (0.0-0.4) 04/25/18 05:17 Baso # 0.1 K/mm3 (0.0-0.1) 04/25/18 05:17 Seg Neutrophils % 69.7 % (40.0-70.0) 04/25/18 05:17 Seg Neutrophils # 4.5 K/mm3 (1.8-7.7) 04/25/18 05:17 Sodium 139 mmol/L (137-145) 04/30/18 04:47 Potassium 4.1 mmol/L (3.6-5.0) 04/30/18 04:47 Chloride 100.8 mmol/L (98-107) 04/30/18 04:47 Carbon Dioxide 27 mmol/L (22-30) 04/30/18 04:47 Anion Gap 15 mmol/L 04/30/18 04:47 BUN 46 mg/dL (9-20) H 04/30/18 04:47 Creatinine 2.4 mg/dL (0.8-1.5) H 04/30/18 04:47 Estimated GFR 35 ml/min 04/30/18 04:47 BUN/Creatinine Ratio 19 % 04/30/18 04:47 Glucose 101 mg/dL (75-100) H 04/30/18 04:47 Hemoglobin A1c 6.3 % (4-6) H 04/24/18 09:49 Calcium 8.8 mg/dL (8.4-10.2) 04/30/18 04:47 Magnesium 2.30 mg/dL (1.7-2.3) 04/29/18 10:18 Total Bilirubin 1.20 mg/dL (0.1-1.2) 04/25/18 05:17 AST 18 units/L (5-40) 04/25/18 05:17 ALT 15 units/L (7-56) 04/25/18 05:17 Alkaline Phosphatase 63 units/L (35-129) 04/25/18 05:17 Troponin T 0.070 ng/mL (0.00-0.029) H 04/24/18 07:01 NT-Pro-B Natriuret Pep 13674 pg/mL (0-450) H 04/24/18 07:01 Serum Total Protein 5.4 g/dL (6.1-8.1) L 04/25/18 10:11 Total Protein 5.8 g/dL (6.3-8.2) L 04/25/18 05:17 Albumin 2.3 g/dL (3.8-4.8) L 04/25/18 10:11 Albumin/Globulin Ratio 0.7 % 04/25/18 05:17 Nlpsb-3-Ysqzukcua 0.3 g/dL (0.2-0.3) 04/25/18 10:11 Obilr-6-Nxkxnfeth 0.6 g/dL (0.5-0.9) 04/25/18 10:11 Beta Globulins 0.3 g/dL (0.2-0.5) 04/25/18 10:11 Gamma Globulins 1.6 g/dL (0.8-1.7) 04/25/18 10:11 Abnorm Protein Band 1 see below 04/25/18 10:11 PEP Interpretation see below H 04/25/18 10:11 Triglycerides 110 mg/dL (2-149) 04/24/18 07:01 Cholesterol 115 mg/dL (50-199) 04/24/18 07:01 LDL Cholesterol Direct 78 mg/dL (50-130) 04/24/18 07:01 HDL Cholesterol 24 mg/dL (40-59) L 04/24/18 07:01 Cholesterol/HDL Ratio 4.79 % 04/24/18 07:01 Urine Total Volume 4400 04/26/18 Unknown Urine Creatinine 35.6 mg/dL (0.1-20.0) H 04/26/18 Unknown Ur Creatinine 24 Hour 1.6 (0.8-2.8) 04/26/18 Unknown Height (in) 69.0 inches 04/25/18 09:05 Weight (lb) 235.4 lbs 04/25/18 09:05 Creatinine Clearance 24 04/25/18 09:05 Ur Total Protein 24 Hr 1056.00 (2-200) H 04/26/18 Unknown Protein/Creatinin Ratio 0.67 04/26/18 Unknown Urine Total Protein 24 mg/dL (5-11.8) H 04/26/18 Unknown BREE Screen Negative (Negative) 04/25/18 10:11 Proteinase 3 (PR3) Ab <1.0 AI (<1.0) 04/25/18 10:11 Myeloperoxidase Ab <1.0 AI (<1.0) 04/25/18 10:11 Complement C3 105 mg/dL (82-185) 04/25/18 10:11 Complement C4 25 mg/dL (15-53) 04/25/18 10:11
--- NOTE | 2018-04-30 15:32 | Discharge Summary ---
Providers - Providers Date of Admission: 04/24/18 08:25 Attending physician: WANDA ROCKWELL MD 04/24/18 09:38 Consult to Physician [CONS] Routine Comment: Consulting Provider: XIMENA WASSERMAN Physician Instructions: Reason For Exam: CKD 04/25/18 09:32 Consult to Physician [CONS] Routine Comment: Consulting Provider: JOSEPH JIMENEZ Physician Instructions: Reason For Exam: chf and htn Primary care physician: NURSING EDUCATION CONSULTANT Hospitalization Reason for admission: acute on chronic combined systolic and systolic CHF, acute on chronic renal Condition: Stable Disposition: DC- TO HOME OR SELFCARE Time spent for discharge: 34 minutes - Discharge Diagnoses (1) CHF exacerbation Status: Chronic Qualifiers: Heart failure type: combined systolic and diastolic Qualified Code(s): I50.43 - Acute on chronic combined systolic (congestive) and diastolic ( congestive) heart failure (2) Hypertensive emergency Status: Acute (3) NSVT (nonsustained ventricular tachycardia) Status: Acute (4) CKD (chronic kidney disease) stage 4, GFR 15-29 ml/min Status: Chronic (5) Dilated cardiomyopathy Status: Chronic Core Measure Documentation - Palliative Care Palliative Care/ Comfort Measures: Not Applicable - Core Measures Any of the following diagnoses?: heart failure Exam - Physical Exam Narrative exam: Not in cardiopulmonary distress. The patient is morbidly obese. Vital signs as documented. Head exam is unremarkable. No scleral icterus . Neck is without jugular venous distension, thyromegaly, or carotid bruits. Lungs are clear to auscultation. Cardiac exam reveals regular rate and Rhythm. Abdominal exam reveals normal bowel sounds. Extremities bilateral lower extremity edema. RN MEDICAL INPATIENT SERVICES: Alert and oriented 3. No focal weakness. - Constitutional Vitals: Temp Pulse Resp BP Pulse Ox 97.9 F 54 L 20 156/112 97 04/30/18 11:59 04/30/18 11:59 04/30/18 11:59 04/30/18 11:59 04/30/18 11:59 Plan Activity: no restrictions Weight Bearing Status: Full Weight Bearing Diet: low salt, renal Additional Instructions: Follow up at [facility] in 1 week Follow up with: KALYAN ROSADO MD [Primary Care Provider] - 3-5 Days ELEAZAR WELCH MD [Staff Physician] - 7 Days MINNIE MARQUES MD [Staff Physician] - 7 Days Prescriptions: amLODIPine [Norvasc] 10 mg PO QDAY #30 tablet Carvedilol [Coreg] 25 mg PO BID #60 tablet cloNIDine [Catapres] 0.2 mg PO Q12HR #60 tablet Famotidine [Pepcid] 20 mg PO QDAY #15 tablet Isosorb Dinit/Hydralazine [Bidil 20/37.5MG] 1 each PO Q8HR #90 tablet oxyCODONE /ACETAMINOPHEN [Percocet 5/325 mg] 1 tab PO Q6H PRN #12 tablet PRN Reason: Pain, Moderate (4-6) predniSONE [Deltasone] 20 mg PO QDAY #5 tablet
[2018-04-30] MEDS: SODIUM CHLORIDE FLUSH SYRINGE 10 ML IV SCH (18:03)
[2018-04-30 21:00] VITALS: BP 148/102
== END 2018-04-29 22:30 | disposition home or self-care (01) | DRG 291 ==
LOC: ED 06:01 → 4A 08:25
PROVIDERS: ADMIT Hospitalist; ATTEND Internal Medicine
DX: I13.0 Hypertensive heart and chronic kidney disease with heart failure and stage 1 through stage 4 chronic kidney disease, or unspecified chronic kidney disease (principal); N17.0 Acute kidney failure with tubular necrosis; I50.43 Acute on chronic combined systolic (congestive) and diastolic (congestive) heart failure; I16.1 Hypertensive emergency; N18.4 Chronic kidney disease, stage 4 (severe); I47.1 Supraventricular tachycardia; I27.20 Pulmonary hypertension, unspecified; I07.1 Rheumatic tricuspid insufficiency; I42.0 Dilated cardiomyopathy; E66.9 Obesity, unspecified; Z91.19 Patient's noncompliance with other medical treatment and regimen; Z79.899 Other long term (current) drug therapy; Z68.32 Body mass index [BMI] 32.0-32.9, adult
CPT/HCPCS: 36415; 71046; 76770; 78452; 80048; 80053; 80061; 82565; 82570; 82575; 83036; 83735; 83880; 84156; 84165; 84484; 85025; 86021; 86038; 86160; 93005; 93010; 93017; 93306; 99291; A9502; J1644; J1940; J2270; J2785; J7512